=== PATIENT | female | born 1940 | race Caucasian/White ===

== ENCOUNTER 2022-11-19 09:56 | Observation (INO) | payer MEDICARE, SELFPAY ==
[2022-11-19] VITALS (9 sets, daily range): BP systolic 94–118; BP diastolic 55–89; PULSE 70–91; RESP 16–18; TEMP 35.6; O2SAT 95–97; BMI 19.8
--- NOTE | 2022-11-19 10:32 | CRLHL7_ITS ---
For Patients: As a result of the Century Cures Act, medical imaging exams and procedure reports are released immediately into your electronic medical record. You may view this report before your referring provider. If you have questions, please contact your health care provider. INDICATION: Atrial fibrillation with a rapid ventricular response. TECHNIQUE: AP portable semi-upright chest. COMPARISON: None. FINDINGS: Clear lungs. No pneumothoraces or infiltrates. No evidence for congestive heart failure. Slight cardiac enlargement likely accentuated by the portable technique. IMPRESSION: No acute cardiopulmonary process identified. Dictated by Jose Daniel Lama MD @ 11/19/2022 11:18:42 AM (Electronically Signed)
--- NOTE | 2022-11-19 10:34 | ED.GENADULT ---
HPI - General Adult General Chief complaint: Dizziness/Vertigo Stated complaint: Weakness, tightness in chest Time Seen by Provider: 11/19/22 10:10 History of Present Illness HPI narrative: Jordan is a 82-year-old female from home presents emerged department via private car with with some dizziness and weakness and tightness in the chest. Patient states she went to bed last night feeling well, she got up this morning going to the bathroom and had dizziness like the room was spinning, she denies any chest pain or shortness of breath, she feels better when she lays down, she does have a history of atrial fibrillation she is not currently on any anticoagulation. She denies any diaphoresis, cough, fevers or chills. Related Data Home Medications Medication Instructions Recorded Confirmed No Known Home Medications 11/19/22 11/19/22 Allergies Allergy/AdvReac Type Severity Reaction Status Date / Time No Known Drug Allergies Allergy Verified 11/19/22 10:13 Review of Systems Status of ROS: Reports: 10 or more systems reviewed and unremarkable except as noted in History and below PFSH PFS Social History Smoking Status: Never smoker How often do you have a drink containing alcohol: monthly or less AUDIT-C Alcohol total score: 1 Non-prescribed substance use: denies use Exam Narrative: Exam Narrative: General: No obvious distress laying comfortably HEENT: Pupils equal round reactive to light Neck: Supple full range of motion Heart: Irregular regular tachycardic Lungs: Clear to auscultation bilaterally Abdomen: Soft nontender Muscle skeletal: No lower extremity edema Neuro: Alert awake and oriented x3 Const: Vital Signs, click to edit/add: Vital Signs - 24 hr 11/19/22 10:10 Temperature 96.1 F L Pulse Rate [Pulse Oximeter] 91 Respiratory Rate 18 Blood Pressure [Ri ght Upper Arm] 102/57 L Pulse Oximetry 96 Oxygen Delivery Me thod Room Air Course Course Hospital Course: 10:30 AM: AIDET, vitals are stable at this time, workup will include IV peripheral, 500 mL bolus 0.9 normal saline, will obtain EKG, CBC, troponin T, CMP, TSH and portable chest x-ray one-view. Differential diagnosis include but not limited to CAD/mi, PE, pneumothorax, pneumonia and aortic dissection. Other considerations are thyroid abnormalities, heart failure, SVT, atrial fibrillation, ventricular tachycardia and ventricular fibrillation. Reevaluation(s) Reevaluation #1: Did speak with [facility] who reviewed EKG, recommended rate control and started on anticoagulation, not to treat as a level 1, EKG did show atrial fibrillation with RVR, was septal infarct age indeterminate, bpm 175, marked ST abnormality possible inferior subendocardial injury, no comparisons. Once IV was placed, patient did convert back to normal sinus rhythm. Second EKG showed, normal sinus rhythm, bpm 75, possible left atrial enlargement, no acute ST changes. Normal sinus rhythm replaces atrial fibrillation for previous. Time: 11:08 Reevaluation #2: Patient did well during stay in the emergency department, 1st troponin was mildly elevated at 0.08 likely a leak, repeat at 2:00 a.m. was 0.12, x-ray chest PA and lateral showed no acute cardiopulmonary process, TSH 5.2, she was positive for SARs/COVID, patient remained in normal sinus rhythm throughout her stay, his speak with Cardiology at [facility] once again based on her risk of recurrence recommended inpatient cares and echocardiogram, to possibly start patient on a antiarrhythmic. Spoke with Dr. Garsia hospitalist on-call she accepts care of the patient. Patient and were in agreement. Time: 14:30 Vital Signs Vital signs: Initial Vital Signs Temperature 96.1 F L 11/19/22 10:10 Temperature Source Temporal Artery Scan 11/19/22 10:10 Pulse Rate 91 11/19/22 10:10 Respiratory Rate 18 11/19/22 10:10 Blood Pressure 102/57 L 11/19/22 10:10 Blood Pressure Mean 72 11/19/22 10:10 Blood Pressure Position Supine 11/19/22 10:10 Pulse Oximetry 96 11/19/22 10:10 Oxygen Delivery Method 11/19/22 10:10 Vital Signs Temperature 96.1 F L 11/19/22 10:10 Pulse Rate 91 11/19/22 10:10 Respiratory Rate 18 11/19/22 10:10 Blood Pressure 102/57 L 11/19/22 10:10 Pulse Oximetry 96 11/19/22 10:10 Oxygen Delivery Method 11/19/22 10:10 Temperature 96.1 F L 11/19/22 10:10 Pulse Rate 91 11/19/22 10:10 Respiratory Rate 18 11/19/22 10:10 Blood Pressure 102/57 L 11/19/22 10:10 Pulse Oximetry 96 11/19/22 10:10 Oxygen Delivery Method 11/19/22 10:10 Medical Decision Making Lab Data Labs: Lab Results 11/19/22 11/19/22 11/19/22 Range/Units 10:40 10:40 10:40 WBC 8.58 (4.50-11.00) K/uL RBC 4.84 (4.00-5.20) m/uL Hgb 14.4 (12.0-16.0) gm/dL Hct 43.4 (33.0-51.0) % MCV 90 (80-100) fL MCH 30 (26-34) pg MCHC 33 (32-36) gm/dL RDW Coeff of Ayleen 13.8 (11.5-15.5) % Plt Count 370 (140-440) K/uL Neut % (Auto) 82.8 H (42.0-72.0) % Lymph % (Auto) 12.0 L (20-44) % [place] % (Auto) 4.3 (0.0-11.0) % Eos % (Auto) 0.3 (0.0-7.0) % Baso % (Auto) 0.3 (0.0-3.0) % Neut # (Auto) 7.10 H (1.7-7.0) K/uL Lymph # (Auto) 1.00 (0.90-2.90) K/uL [place] # (Auto) 0.40 (0.00-0.90) K/UL Eos # (Auto) 0.03 (0.00-0.50) K/uL Baso # (Auto) 0.03 (0.00-0.30) K/uL Sodium 140 (135-149) mmol/L Potassium 4.2 (3.6-5.1) mmol/L Chloride 107 (96-114) mmol/L Carbon Dioxide 23 (20-32) mmol/L BUN 15 (7-30) mg/dL Creatinine 0.8 (0.5-1.5) mg/dL Estimated Creat Clear 40.44 Estimated GFR 74 ml/min Glucose 167 H (60-115) mg/dL Calcium 10.1 (8.4-10.6) mg/dL Total Bilirubin 1.0 (0.1-1.5) mg/dL AST 20 (12-35) U/L ALT 16 (4-35) U/L Alkaline Phosphatase 78 (40-150) U/L Troponin I 0.08 H* (0.01-0.04) ng/mL Total Protein 7.7 (6.0-8.3) g/dL Albumin 4.2 (3.3-5.0) g/dL TSH 5.200 H (0.270-4.20) uIU/mL SARS-CoV-2 (PCR) (Negative) 11/19/22 11/19/22 Range/Units 11:18 12:55 WBC (4.50-11.00) K/uL RBC (4.00-5.20) m/uL Hgb (12.0-16.0) gm/dL Hct (33.0-51.0) % MCV (80-100) fL MCH (26-34) pg MCHC (32-36) gm/dL RDW Coeff of Ayleen (11.5-15.5) % Plt Count (140-440) K/uL Neut % (Auto) (42.0-72.0) % Lymph % (Auto) (20-44) % [place] % (Auto) (0.0-11.0) % Eos % (Auto) (0.0-7.0) % Baso % (Auto) (0.0-3.0) % Neut # (Auto) (1.7-7.0) K/uL Lymph # (Auto) (0.90-2.90) K/uL [place] # (Auto) (0.00-0.90) K/UL Eos # (Auto) (0.00-0.50) K/uL Baso # (Auto) (0.00-0.30) K/uL Sodium (135-149) mmol/L Potassium (3.6-5.1) mmol/L Chloride (96-114) mmol/L Carbon Dioxide (20-32) mmol/L BUN (7-30) mg/dL Creatinine (0.5-1.5) mg/dL Estimated Creat Clear Estimated GFR ml/min Glucose (60-115) mg/dL Calcium (8.4-10.6) mg/dL Total Bilirubin (0.1-1.5) mg/dL AST (12-35) U/L ALT (4-35) U/L Alkaline Phosphatase (40-150) U/L Troponin I 0.12 H* (0.01-0.04) ng/mL Total Protein (6.0-8.3) g/dL Albumin (3.3-5.0) g/dL TSH (0.270-4.20) uIU/mL SARS-CoV-2 (PCR) POSITIVE SARS-CoV-2 A (Negative) Discharge Plan Discharge Clinical Impression: COVID-19, Atrial fibrillation with RVR Additional Instructions: Cardiology follow up appointment is scheduled at the [facility] [address] on 01/02 with a 10:15am arrival time. If you have any questions or need to reschedule, please call [phone]. [facility] [address] [place] [address] Prescriptions: No Action No Known Home Medications
[2022-11-19 10:55] LABS: Basophils Absolute Auto 0.03 K/uL (0.00-0.30); Basophils Percent Auto 0.3 % (0.0-3.0); Eosinophils Absolute Auto 0.03 K/uL (0.00-0.50); Eosinophils Percent Auto 0.3 % (0.0-7.0); Hematocrit 43.4 % (33.0-51.0); Hemoglobin* 14.4 gm/dL (12.0-16.0); Immature Granulocytes Abs Auto 0.03 K/uL (0.00-0.30); Immature Granulocytes Pct Auto 0.3 %; Mean Corpuscular HGB Conc 33 gm/dL (32-36); Mean Corpuscular Hemoglobin 30 pg (26-34); Mean Corpuscular Volume 90 fL (80-100); Monocytes Percent Auto 4.3 % (0.0-11.0); Neutrophils Percent Auto 82.8 % (42.0-72.0); Platelet Count* 370 K/uL (140-440); RDW Coefficient of Variation % 13.8 % (11.5-15.5); Red Blood Count 4.84 m/uL (4.00-5.20); White Blood Count* 8.58 K/uL (4.50-11.00)
[2022-11-19 10:58] LABS: Slide Review Reflex No
[2022-11-19 11:08] LABS: Albumin* 4.2 g/dL (3.3-5.0); Chloride* 107 mmol/L (96-114); Potassium* 4.2 mmol/L (3.6-5.1); Sodium* 140 mmol/L (135-149)
[2022-11-19 11:11] LABS: Alanine Aminotransferase* 16 U/L (4-35); Alkaline Phosphatase* 78 U/L (40-150); Aspartate Amino Transferase* 20 U/L (12-35); Blood Urea Nitrogen* 15 mg/dL (7-30); Calcium* 10.1 mg/dL (8.4-10.6); Carbon Dioxide* 23 mmol/L (20-32); Creatinine* 0.8 mg/dL (0.5-1.5); Est. Creatinine Clearance* 40.44; Estimated Glomerular Filt Rate 74 ml/min; Glucose* 167 mg/dL (60-115); Total Protein* 7.7 g/dL (6.0-8.3)
[2022-11-19 11:27] LABS: Troponin I* 0.08 ng/mL (0.01-0.04)
[2022-11-19] MEDS: 0.9 % SODIUM CHLORIDE 500 ML 500 ML IV (11:45)
[2022-11-19 12:00] LABS: SARS PCR* POSITIVE SARS-CoV-2 (Negative)
[2022-11-19 13:31] LABS: Troponin I* 0.12 ng/mL (0.01-0.04)
--- NOTE | 2022-11-19 14:37 | ED.NURSE ---
bed request sent
--- NOTE | 2022-11-19 16:12 | PM.IMHP1 ---
Hospitalist- H&P: HPI History of Present Illness Time Seen by Provider: 16:12 Date Seen: 11/19/22 Chief complaint: Weakness, tightness in chest Review of Systems Status of ROS: Reports: 6 or more systems reviewed and unremarkable except as noted in History and below [facility] Social History (Updated 11/19/22 @ 16:33 by Samantha Garsia MD) Narrative: . Lives independently. Denies tob, EtOH, recreational drugs. FULL CODE. Smoking Status: Never smoker How often do you have a drink containing alcohol: monthly or less AUDIT-C Alcohol total score: 1 Non-prescribed substance use: denies use Meds Home Medications and Allergies Home Medications Medication Instructions Recorded Confirmed Type calcium carbonate 500 mg-vitamin 2 tab PO DAILY 11/19/22 11/19/22 History D3 10 mcg (400 unit) tablet (Calcium 500 + D) Allergies Allergy/AdvReac Type Severity Reaction Status Date / Time No Known Drug Allergies Allergy Verified 11/19/22 10:13 Exam Const: Vital Signs, click to edit/add: Vital Signs - 24 hr 11/19/22 10:10 11/19/22 11:40 11/19/22 11:48 Temperature 96.1 F L Pulse Rate [Pulse Oximeter] 91 75 72 Pulse Rate [orthos tatic lying Apical ] Pulse Rate [orthos tatic sitting Apic al] Pulse Rate [orthos tatic standing Api garima] Respiratory Rate 18 16 16 Blood Pressure [Ri ght Upper Arm] 102/57 L 107/60 101/55 L Blood Pressure [or thostatic lying Le ft Arm] Blood Pressure [or thostatic sitting Left Arm] Blood Pressure [or thostatic standing Left Arm] Pulse Oximetry 96 96 96 Oxygen Delivery Me thod Room Air 11/19/22 11:50 11/19/22 11:51 11/19/22 11:40 Temperature Pulse Rate [Pulse Oximeter] 74 80 Pulse Rate [orthos tatic lying Apical ] 71 Pulse Rate [orthos tatic sitting Apic al] 75 Pulse Rate [orthos tatic standing Api garima] 80 Respiratory Rate 16 16 Blood Pressure [Ri ght Upper Arm] 111/62 94/70 Blood Pressure [or thostatic lying Le ft Arm] 101/55 L Blood Pressure [or thostatic sitting Left Arm] 111/62 Blood Pressure [or thostatic standing Left Arm] 94/70 Pulse Oximetry 97 95 Oxygen Delivery Me thod 11/19/22 12:00 11/19/22 13:45 11/19/22 14:00 Temperature Pulse Rate [Pulse Oximeter] 70 73 73 Pulse Rate [orthos tatic lying Apical ] Pulse Rate [orthos tatic sitting Apic al] Pulse Rate [orthos tatic standing Api garima] Respiratory Rate 16 16 16 Blood Pressure [Ri ght Upper Arm] 98/56 L 118/58 L 111/89 Blood Pressure [or thostatic lying Le ft Arm] Blood Pressure [or thostatic sitting Left Arm] Blood Pressure [or thostatic standing Left Arm] Pulse Oximetry 95 97 96 Oxygen Delivery Me thod Hospitalist - H&P: Result Labs Labs: Short CBC 11/19/22 Range/Units 10:40 WBC 8.58 (4.50-11.00) K/uL Hgb 14.4 (12.0-16.0) gm/dL Hct 43.4 (33.0-51.0) % Plt Count 370 (140-440) K/uL BMP 11/19/22 10:40 Sodium 140 Potassium 4.2 Chloride 107 Carbon Dioxide 23 BUN 15 Creatinine 0.8 Glucose 167 H Calcium 10.1 Cardiac Enzymes 11/19/22 11/19/22 Range/Units 10:40 12:55 Troponin I 0.08 H* 0.12 H* (0.01-0.04) ng/mL Liver Function 11/19/22 Range/Units 10:40 Total Bilirubin 1.0 (0.1-1.5) mg/dL AST 20 (12-35) U/L ALT 16 (4-35) U/L Alkaline Phosphatase 78 (40-150) U/L Albumin 4.2 (3.3-5.0) g/dL
--- NOTE | 2022-11-19 17:18 | PM.SD ---
Same Day Admit/Disch: HPI History of Present Illness Time Seen by Provider: 16:12 Date Seen: 11/19/22 Chief complaint: Weakness, tightness in chest Narrative: This is an 82 year old female who has a history of atrial fibrillation for which she had an ablation many years ago and has not taken any medications for it since that time who presented through the emergency department this morning for concern of unsteadiness and dizziness. When she awoke this morning she had a sensation or dream that the blood was flowing from her left arm into her right arm. She denies any chest pain, heaviness, or shortness of breath. She had no palpitations. She has not had any recent illnesses, coughs, colds, febrile illnesses. She started to get up to use the bathroom and noted that her legs felt weak. While in the bathroom she felt unsteady on her feet. When she presented to the emergency department she had an EKG that showed she was in atrial fibrillation with a rapid ventricular rate of 175-180. When the IV was placed she converted back into normal sinus rhythm. A repeat EKG confirmed that. She had a mild troponin leak of 0.12. She is positive for SARs CoV 2. She feels fine now, back to her baseline in is moving around the room without any difficulty or unsteadiness. She was at 1st very resistant to taking any medications, but we discussed the increased risk of stroke in the setting of atrial fibrillation with RVR earlier today, and she agreed to start medications. She mentions that her is having leg surgery on December 02 and she will be caring for him at that time. I spoke with Dr. Ghanshyam Crawford from Cardiology at [facility] would also spoke with Dr. Leon in the emergency department about this patient earlier today. Dr. Crawford recommended that she could be discharged and treated as an outpatient with a beta-bhavin, metoprolol either 25 or 50 and Eliquis 5 mg twice a day. We discussed patient's age and creatinine pants when making this decision. I spoke with the patient about this and she wanted her medications sent to [facility]. I will set her up with an outpatient echocardiogram, primary care provider follow-up and Cardiology follow-up. Same Day Admit/Disch: ROS Constitutional Constitutional: Present weakness (As above); Absent anorexia, fatigue, fever(s) or headache(s) EENT Eyes: Absent change in vision Nose, mouth and throat: Absent sore throat Cardiovascular Cardiovascular: Absent chest pain, palpitations or pedal edema Gastrointestinal Gastrointestinal ROS: Absent abdominal pain, constipation, diarrhea, nausea or vomiting Genitourinary Genitourinary: Absent dysuria, urinary frequency or urinary urgency Musculoskeletal Musculoskeletal: Present abnormal gait (As above, felt unsteady); Absent back pain or myalgias Integumentary Integumentary: Absent rash Neurological Neurological: Present abnormal gait (As above) and dizziness; Absent confusion, frequent falls, lack of coordination, numbness or weakness Hematologic/Lymphatic Hematologic/Lymphatic: Absent lymphadenopathy [facility] Medical History (Updated 11/19/22 @ 17:57 by Samantha Garsia MD) Malignant neoplasm of rectosigmoid junction Nephrolithiasis Neuropathy of both feet Osteoporosis Paroxysmal A-fib SAH (subarachnoid hemorrhage) (~2010) Tubular adenoma of colon Social History (Updated 11/19/22 @ 16:33 by Samantha Garsia MD) Narrative: . Lives independently. Denies tob, EtOH, recreational drugs. FULL CODE. Smoking Status: Never smoker How often do you have a drink containing alcohol: monthly or less AUDIT-C Alcohol total score: 1 Non-prescribed substance use: denies use Exam Narrative: Exam Narrative: General: No acute distress. Odd affect. Impulsive and tangential thinking. Awake alert oriented x3. Very active moving around the room while I am talking with her, getting up and sitting back down in the chair bending over to put something in the garbage, even walked out into the hallway without a mask on and was asked to return to the room since she is COVID positive. HEENT: Normocephalic atraumatic, pupils equally round and reactive to light and accommodation. Oropharynx clear. Mucous membranes are moist. No cervical lymphadenopathy, thyromegaly or carotid bruits. No JVD. Cardiovascular: Regular rate and rhythm. No murmurs, gallops, or rubs. Chest: No increased work of breathing. Clear to auscultation bilaterally. No crackles or wheezes. Abdomen: Bowel sounds present. Soft, nondistended, nontender. No hepatosplenomegaly or masses. Extremities: No edema, no cyanosis or clubbing. Const: Vital Signs, click to edit/add: Vital Signs - 24 hr 11/19/22 10:10 11/19/22 11:40 11/19/22 11:48 Temperature 96.1 F L Pulse Rate [Pulse Oximeter] 91 75 72 Pulse Rate [orthos tatic lying Apical ] Pulse Rate [orthos tatic sitting Apic al] Pulse Rate [orthos tatic standing Api garima] Respiratory Rate 18 16 16 Blood Pressure [Ri ght Upper Arm] 102/57 L 107/60 101/55 L Blood Pressure [or thostatic lying Le ft Arm] Blood Pressure [or thostatic sitting Left Arm] Blood Pressure [or thostatic standing Left Arm] Pulse Oximetry 96 96 96 Oxygen Delivery Me thod Room Air 11/19/22 11:50 11/19/22 11:51 11/19/22 11:40 Temperature Pulse Rate [Pulse Oximeter] 74 80 Pulse Rate [orthos tatic lying Apical ] 71 Pulse Rate [orthos tatic sitting Apic al] 75 Pulse Rate [orthos tatic standing Api garima] 80 Respiratory Rate 16 16 Blood Pressure [Ri ght Upper Arm] 111/62 94/70 Blood Pressure [or thostatic lying Le ft Arm] 101/55 L Blood Pressure [or thostatic sitting Left Arm] 111/62 Blood Pressure [or thostatic standing Left Arm] 94/70 Pulse Oximetry 97 95 Oxygen Delivery Me thod 11/19/22 12:00 11/19/22 13:45 11/19/22 14:00 Temperature Pulse Rate [Pulse Oximeter] 70 73 73 Pulse Rate [orthos tatic lying Apical ] Pulse Rate [orthos tatic sitting Apic al] Pulse Rate [orthos tatic standing Api garima] Respiratory Rate 16 16 16 Blood Pressure [Ri ght Upper Arm] 98/56 L 118/58 L 111/89 Blood Pressure [or thostatic lying Le ft Arm] Blood Pressure [or thostatic sitting Left Arm] Blood Pressure [or thostatic standing Left Arm] Pulse Oximetry 95 97 96 Oxygen Delivery Me thod Same Day Admit/Disch: Data Data Completed and Pending Completed studies during hospitalization: 11/19/2022 10:12 a.m. EKG: Atrial fibrillation with rapid ventricular response. Heart rate 175 beats per minute. Low-voltage QRS. Septal infarct, age undetermined. Marked ST abnormality, possible inferior subendocardial injury. 11/19/2022 11:11 a.m. EKG: Normal sinus rhythm. Heart rate 74 beats per minute. Septal infarct, age undetermined. Ordering Physician: Nickolas Leon M.D. Date of Service: 11/19/22 Procedure(s): XR chest 1V portable Accession Number(s): [id number] cc: Provider,Not a Local ; Nickolsa Leon M.D.~ For Patients: As a result of the Cures Act, medical imaging exams and procedure reports are released immediately into your electronic medical record. You may view this report before your referring provider. If you have questions, please contact your health care provider. INDICATION: Atrial fibrillation with a rapid ventricular response. TECHNIQUE: AP portable semi-upright chest. COMPARISON: None. FINDINGS: Clear lungs. No pneumothoraces or infiltrates. No evidence for congestive heart failure. Slight cardiac enlargement likely accentuated by the portable technique. IMPRESSION: No acute cardiopulmonary process identified. Dictated by Jose Daniel Lama MD @ 11/19/2022 11:18:42 AM (Electronically Signed) Labs on day of discharge: Labs from last 24 hours 11/19/22 11/19/22 11/19/22 12:55 11:18 10:40 WBC RBC Hgb Hct MCV MCH MCHC RDW Coeff of Ayleen Plt Count Neut % (Auto) Lymph % (Auto) Greene % (Auto) Eos % (Auto) Baso % (Auto) Neut # (Auto) Lymph # (Auto) Greene # (Auto) Eos # (Auto) Baso # (Auto) Sodium Potassium Chloride Carbon Dioxide BUN Creatinine Estimated Creat Clear Estimated GFR Glucose Calcium Total Bilirubin AST ALT Alkaline Phosphatase Troponin I 0.12 H* Total Protein Albumin TSH 5.200 H SARS-CoV-2 (PCR) POSITIVE SARS-CoV-2 A 11/19/22 11/19/22 10:40 10:40 WBC 8.58 RBC 4.84 Hgb 14.4 Hct 43.4 MCV 90 MCH 30 MCHC 33 RDW Coeff of Ayleen 13.8 Plt Count 370 Neut % (Auto) 82.8 H Lymph % (Auto) 12.0 L Greene % (Auto) 4.3 Eos % (Auto) 0.3 Baso % (Auto) 0.3 Neut # (Auto) 7.10 H Lymph # (Auto) 1.00 Greene # (Auto) 0.40 Eos # (Auto) 0.03 Baso # (Auto) 0.03 Sodium 140 Potassium 4.2 Chloride 107 Carbon Dioxide 23 BUN 15 Creatinine 0.8 Estimated Creat Clear 40.44 Estimated GFR 74 Glucose 167 H Calcium 10.1 Total Bilirubin 1.0 AST 20 ALT 16 Alkaline Phosphatase 78 Troponin I 0.08 H* Total Protein 7.7 Albumin 4.2 TSH SARS-CoV-2 (PCR) Same Day Admit/Disch: Sum Hospital Course Hospital Course: See HPI. Status at Discharge Functional status at discharge: independent ambulation Overall status at discharge: patient is back to baseline Time Spent with Patient Time attestation: Total time spent providing and/or coordinating discharge services: 60 minutes due to multiple discussions with patient and phone call with have a chief data officer. Time spent: Greater than 30 minutes Provider Date of admission: 11/19/22 15:09 Primary care physician: Dina Ayala MD DS: Diagnosis Discharge Diagnosis (1) Atrial fibrillation with RVR: Status: Acute (2) Paroxysmal A-fib: Status: Chronic Problem details: h/o ablation per patient (3) COVID-19: Status: Acute Problem details: She is asymptomatic from covid. Not treating with paxlovid due to potential potentiation of apixaban. I do not think she needs remdesivir. Preferentially treating afib. Same Day Admit/Disch: Med Pre-admit Medications Home Medications Medication Instructions Recorded Confirmed Type calcium carbonate 500 mg-vitamin 2 tab PO DAILY 11/19/22 11/19/22 History D3 10 mcg (400 unit) tablet (Calcium 500 + D)
--- NOTE | 2022-11-19 18:31 | PC.NURSE ---
[facility]
--- NOTE | 2022-11-19 19:17 | PC.NURSE ---
Patient arrived to the floor around 1515. Patient denies having weakness or covid sypmtoms present. Sates I just don't know how I could be positive. Patient ambulating around the room independently - demonstrates a steady gait. Pulse rate found to be in the 90's and irregular. Patient appears to be oriented to time and place however is very forgetful. Walks out of her room multiple times. Pt reminded that she tested positive for covid and that she should not leave her room. Dr. Garsia saw the patient and wrote for discharge instructions. IV was removed. Discharge instructions were went over. All questions and concerns were addressed. Pt escorted to the front entrance via a wheelchair and nursing staff.
== END 2022-11-19 18:20 | disposition home or self-care (01) ==
LOC: ED 14:20 → MEDSURG 15:09
PROVIDERS: Admitting Provider Family Medicine; Emergency Provider Student in an Organized Health Care Education/Training Program; PCP Family Medicine; Visit Provider Family Medicine
DX: U07.1 COVID-19 (principal); I48.91 Unspecified atrial fibrillation; R77.8 Other specified abnormalities of plasma proteins; R53.1 Weakness; R42 Dizziness and giddiness; R07.89 Other chest pain; R26.9 Unspecified abnormalities of gait and mobility; Z87.898 Personal history of other specified conditions
CPT/HCPCS: 36415; 71045; 80053; 84443; 84484; 85025; 87635; 93005; 96360; 99282; 99285; G0378; J7120

== ENCOUNTER 2025-05-29 15:34 | Outpatient (CLI) | payer MEDICARE, SELFPAY | END 2025-05-29 15:35 | disposition home or self-care (01) | PROVIDERS: PCP Family Medicine; Visit Provider Family Medicine | DX: S89.91XA Unspecified injury of right lower leg, initial encounter (principal); S89.92XA Unspecified injury of left lower leg, initial encounter; W19.XXXA Unspecified fall, initial encounter; Y92.129 Unspecified place in nursing home as the place of occurrence of the external cause | CPT/HCPCS: A0425; A0427 ==

== ENCOUNTER 2025-05-29 16:16 | Inpatient (IN) | payer MEDICARE, SELFPAY ==
[2025-05-29 16:17] VITALS: BP 151/74; PULSE 95; RESP 18; TEMP 36.4; O2SAT 93
--- OUTSIDE RECORDS SUMMARY | 2025-05-29 16:17 | XMS_ITS ---
Author Name Auto Generated, Auto Generated Organization [facility] Functional Status No Results Mental Status No Results Allergies and Intolerances No Known Allergies Problems Active Concerns * Health care maintenance* Code: [id number] * Start Date: ThuMay 29 13:46:00 EDT 2024 * End Date: * Text: * Paroxysmal A-fib* Code: [id number] * Start Date: ThuJan 27 09:50:00 EDT 2024 * End Date: * Text: * Age-related osteoporosis without current pathological fracture* Code: [id number] * Start Date: ThuJan 27 09:50:00 EDT 2024 * End Date: * Text: * Mild hyperlipidemia* Code: [id number] * Start Date: ThuJan 27 09:51:00 EDT 2024 * End Date: * Text: * Mixed urge and stress incontinence* Code: [id number] * Start Date: ThuJan 27 09:51:00 EDT 2024 * End Date: * Text: * Tubular adenoma of colon* Code: [id number] * Start Date: ThuJan 27 09:52:00 EDT 2024 * End Date: * Text: * History of nephrolithiasis* Code: [id number] * Start Date: ThuJan 27 09:52:00 EDT 2024 * End Date: * Text: * 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
--- OUTSIDE RECORDS SUMMARY | 2025-05-29 16:17 | XMS_ITS | Clinical Summary ---
Author Organization [facility] Address [address] [place] [id number] Care Team Providers Care Bracelet Maker Novelty Name Role Phone Dina Ayala MD Primary Care Provide r Allergies No known active allergies Medications calcium carbonate-vitamin D3, 500 mg-400 units, (OSCAL 500 + D) tablet Take 2 Tablets by mouth once daily. 0 2 Active apixaban (Eliquis) 5 mg tabletIndications :Rapid atrial fibrillation (HC) Take 1 Tablet (5 mg) by mouth two times daily. 180 Tablet 3 3 Active metoprolol tartrate (LOPRESSOR) 25 mg tabletIndications :Rapid atrial fibrillation (HC) Take 1 Tablet (25 mg) by mouth two times daily. TAKE 1 BY MOUTH TWICE DAILY Strength: 25 mg 180 Tablet 3 3 Active metoprolol succinate (TOPROL XL) 50 mg sustained-release tabletIndications :Rapid atrial fibrillation (HC) Take 1 Tablet (50 mg) by mouth once daily. 90 Tablet 3 3 Active Active Problems Problem Noted Date Diagnosed Date Rapid atrial fibrillation 12/11/2022 Malignant neoplasm of rectosigmoid junction 12/25 Paroxysmal atrial fibrillation 11/13/2020 Tubular adenoma of colon 11/13/2020 Osteoporosis 11/13/2020 Kidney stones 10/02/2020 Neuropathy of both feet 10/02/2020 Immunizations Immunization Administration Dates Next Due COVID-19 VACCINE SPIKEVAX (M ODERNA 50MCG/0.5ML) 12YO+ PFS 08/05/2024 COVID-19 vaccine ([employer] 30mcg/0.3mL) 12YO+ BIVALENT PF, MDV 07/29/2022 COVID-19 vaccine ([employer] 30mcg/0.3mL) 12YO+ MELO-SUCROSE PF, MDV 02/12/2022 Influenza Virus, Unspecified 08/09/2017, 08/11/2016,08/06/2015,2008 Influenza, High-dose Inactivated 07/28/2019,07/26 Influenza, High-dose Quadriv alent Inactivated 08/14/2022,08/19/2021 Influenza, IIV3 (Age >=3 years) 10/01/2012 Influenza, IIV4 07/26/2015 Influenza, Inactivated AIIV4 (Age 65+ Years) Preserv Free 07/07/2020 Influenza, Inactivated IIV3 (Age 65+ Years) Preserv Free 08/05/2024 Pneumococcal Conj 20-valent (Prevnar 20) 01/15/2023 Pneumococcal Poly,23-Valent (Pneumovax) 07/07/2020 Smallpox (Vaccinia) Live [id number] 07/10/1971 Td (Age >=7 Years) 04/09/1997,07/10/1971 Tdap 06/21/2020 Family History Medical History Relation Name Comments Esophageal cancer Father Cancer Mother Leukemia Sister Relation Name Status Comments Father Mother Sister Social History Tobacco Use Types Packs/Day Years Used Date Smoking Tobacco: Never Smokeless Tobacco: Never Tobacco Cessation:Counseling Given: Yes Alcohol Use Standard Drinks/Week Comments Not Currently 0 (1 standard drink = 0.6 oz pur e alcohol) PHQ-2 Answer Date Recorded PHQ-2 TOTAL SCORE 0 01/17/2022 Social Connections Answer Date Recorded Frequency of Communication with Friends and Fami ly Not on file 10/26/2021 Financial Resource Strain Answer Date R ecorded Difficulty of Paying Living Expenses Not on file 10/26/2021 Difficulty of Paying Living Expenses Not on file 10/26/2021 Comments No Sex and Gender Information Value Date Recorded Sex Assigned at Not on file Legal Sex Female 2:53 PM RADIOGRAPHIC TECHNOLOGIST Gender Identity Not on file Sexual Orientation Not on file Obstetrics History Last Filed Vital Signs Vital Sign Reading Time Taken Comments Blood Pressure 131/83 01/15/2023 7:10 AM CDT Pulse 67 01/15/2023 7:10 AM CDT Temperature - - Respiratory Rate 16 02/06/2022 1:22 PM CDT Oxygen Saturation 98% 01/15/2023 7:10 AM CDT Inhaled Oxygen Concentration - - Weight 66.3 kg (146 lb 3.2 oz) 01/15/2023 7:10 A M CDT Height 170.2 cm (5' 7) 01/17/2022 11:44 AM CDT Body Mass Index 22.9 01/17/2022 11:44 AM CDT Plan of Treatment Health Maintenance Due Date Last Done Comments Zoster (shingles) series for age 50+ (1 of 2) 1991 RSV vaccine for adults or (1 - 1-dose 75+ series) 2016 BMI (ht and wt on same day) for age 18+ 01/17/2023 01/17/2022 Depression screening for age 12+ 01/17/2023 01/17/2022, 11/13/2020, 11/13/2020 Medicare Wellness for age 65+ 01/18/2023 01/17/2022, 11/13/2020 COVID-19 vaccine series ( season) 2025 08/05/2024, 07/29/2022, 02/12/2022, Additional history exists Influenza Vaccine (#1) 2025 , 07/07/2020, 07/28/2019, Additional history exists Tetanus booster 06/21/2030 06/21/2020, 03/26, 07/10/1971 DEXA/DXA scan for age 65+ Completed 11/13/2020 Pneumococcal series for age 50+ Completed 01/15/2023, 07/07/2020 Hepatitis B series for 19+ Aged Out N o longer eligible based on patient's age to complete this topic Procedures Procedure Name Priority Date/Time Associated Diagnosis Comments XR DXA BONE DENSITY 2 SITES AXIAL Routine 11/13/2020 2:58 PM RADIOGRAPHIC TECHNOLOGIST Osteoporosis, unspecified osteoporosis type, unspecified pathological fracture presence from Last 3 Months or Most Recently Relevant to Health Maintenance Results * (ABNORMAL) XR DXA BONE DENSITY 2 SITES AXIAL (11/13/2020 2:58 PM RADIOGRAPHIC TECHNOLOGIST) Anatomical Region Laterality Modality Spine, HIPS, HIPL, HIPR Other Narrative 11/14/2020 2:44 PM RADIOGRAPHIC TECHNOLOGIST Please see scanned document for results of this study. us Dina Ayala MD DEXA Final Result from Last 3 Months or Most Recently Relevant to Health Maintenance Insurance #[id number] [facility] [address] [place] [id number] [facility] MR Advance Directives Documents on File Type Date Recorded Patient Operator Weapon Locating Radar Expl anation POLST 09/01/2024 Care Teams Bracelet Maker Novelty Relationship Specialty Start Date End Date Dina Ayala MD [address] [place] [address] PCP - General Family Practice 10/02/20
--- NOTE | 2025-05-29 16:31 | CRLHL7_ITS ---
For Patients: As a result of the Century Cures Act, medical imaging exams and procedure reports are released immediately into your electronic medical record. You may view this report before your referring provider. If you have questions, please contact your health care provider. Indication: FALL YESTERDAY , LEFT HIP PAIN Technique: Single view of the pelvis, two views of the left hip. Comparison: None. Findings: Mild degenerative changes of the bilateral hips and of the visualized spine. Postsurgical changes from open reduction internal fixation of the proximal right femur. No acute displaced fracture or malalignment is seen. Bowel staple lines are seen in the right abdomen. Impression: Mild degenerative changes of the bilateral hips and of the visualized spine. Postsurgical changes from open reduction internal fixation of the proximal right femur. No acute displaced fracture or malalignment is seen. Dictated by Hay Lawrence MD @ 05/29/2025 5:31:02 PM (Electronically Signed)
--- NOTE | 2025-05-29 16:31 | ED_ITS ---
HPI - Fall General Date Seen: 05/29/25 <Frantz Hemphill DO - Last Filed: 05/29/25 16:51> Chief Complaint: Fall/Minor Trauma <Frantz Hemphill DO - Last Filed: 05/29/25 16:51> Stated Complaint: fall <Frantz Hemphill DO - Last Filed: 05/29/25 16:51> Time Seen by Provider: 05/29/25 16:24 <Frantz Hemphill DO - Last Filed: 05/29/25 16:51> Source: other (Progress note from [facility]) <Frantz Hemphill DO - Last Filed: 05/29/25 16:51> History of Present Illness HPI Narrative: Patient is an 84-year-old female with a history of dementia presenting to emergency department for a fall. History obtained via very detailed progress note from her [facility]. At 12:10 the patient tripped over her walker when she leaned over to grab it. This causes a fall backwards and landed on her butt and then back. Report is she did not hit her head. Staff saw the fall but were unable to catch her. At that time patient is not complaining about any pain other than her right elbow and there was a small bruise at that time. When they tried to sit her up she did screaming some pain and pointed to her lateral thighs when asked what hurts. She was able to get up into a sitting position and was able to stand up to sit into a chair and did not complain of any pain she was able to fully weightbear. After that she was able to stand up inde pendently. Was refusing to take any steps forwards they then wanted to do x- rays at the [facility] and when she went to go get the x-rays the patient refused to stand up out of the chair. Due to this they had to call ambulance to send her to the emergency department for imaging. No other concerns noted. Patient denies any pain at this time but she does have dementia. <Frantz Hemphill DO - Last Filed: 05/29/25 16:51> Related Data Home Medications: Home Medications ?Medication ?Instructions ?Recorded ?Confirmed No Known Home Medications 05/29/2502/17 <Frantz Hemphill DO - Last Filed: 05/29/25 16:51> Allergies/Adverse Reactions: Allergies Allergy/AdvReac Type Severity Reaction Status Date / Time No Known Drug Allergies Allergy Verified 02/20/23 09:58 <Frantz Hemphill DO - Last Filed: 05/29/25 16:51> Review of Systems Status of ROS: Reports: 10 or more systems reviewed and unremarkable except as noted in History and below (But is limited due to patient's dementia.) <Frantz Hemphill DO - Last Filed: 05/29/25 16:51> [facility] Medical History: Medical History SAH (subarachnoid hemorrhage) (~2010) ?I60.9 - Nontraumatic subarachnoid hemorrhage, unspecified (ICD-10) Malignant neoplasm of rectosigmoid junction ?C19 - Malignant neoplasm of rectosigmoid junction (ICD-10) Osteoporosis ?M81.0 - Age-related osteoporosis without current pathological fracture (ICD- 10) Tubular adenoma of colon ?D12.6 - Benign neoplasm of colon, unspecified (ICD-10) Paroxysmal A-fib ?I48.0 - Paroxysmal atrial fibrillation (ICD-10) Neuropathy of both feet ?G57.93 - Unspecified mononeuropathy of bilateral lower limbs (ICD-10) Nephrolithiasis ?N20.0 - Calculus of kidney (ICD-10) <Frantz Hemphill DO - Last Filed: 05/29/25 16:51> Social History: Social History Narrative: . Lives independently. Denies tob, EtOH, recreational drugs. FULL CODE. Smoking Status: Never smoker How often do you have a drink containing alcohol: monthly or less AUDIT-C Alcohol total score: 1 Non-prescribed substance use: denies use <Frantz Hemphill DO - Last Filed: 05/29/25 16:51> Exam Narrative: Exam Narrative: Const: Well-nourished, Well-developed, in no distress Eyes: PERRL, no conjunctival injection, and symmetrical lids HENT: Atraumatic external nose and ears. Moist mucous membranes. Neck: Symmetric, trachea midline, No thyromegaly. CVS: RRR, No murmurs or gallops. Peripheral pulses 2+ and equal in all extremities RESP: Unlabored respiratory effort. Clear to auscultation bilaterally. GI: Nontender/Nondistended, No rebound or guarding. MSK:Extremities w/o deformity, Normal Active ROM, mild left groin tenderness Skin: Warm, Dry. No rashes or lesions. Neuro: Normal Muscle tone, No focal neurological deficits. Psych: Awake, Alert, & Oriented to self <Frantz Hemphill DO - Last Filed: 05/29/25 16:51> Const: Vital Signs, click to edit/add: Vital Signs - 24 hr 05/29/25 16:17 Temperature 97.6 F Pulse Rate [Pulse Oximeter] 95 Respiratory Rate 18 Blood Pressure [Ri ght Upper Arm] 151/74 H Pulse Oximetry 93 Oxygen Delivery Me thod Room Air <Frantz Hemphill, - Last Filed: 05/29/25 16:51> Vital Signs, click to edit/add: Vital Signs - 24 hr 05/29/25 16:17 Temperature 97.6 F Pulse Rate [Pulse Oximeter] 95 Respiratory Rate 18 Blood Pressure [Ri ght Upper Arm] 151/74 H Pulse Oximetry 93 Oxygen Delivery Me thod Room Air <Valerie Velasquez MD - Last Filed: 05/29/25 19:47> Course Course ED Course: I was asked to review patient's imaging. Hip x-rays, read by me, do not show any evidence of fracture. Radiologic over-read in agreement. Patient was able to ambulate with her walker for only a few steps before she matt at the knees and she needs help continuing. This was discussed with the staff at her senior care who stated that this is very unusual for her and that she usually ambulates without difficulty. Because of this we proceeded with a CT scan of the hip which did show fractures of the inferior right pubic ramus and nondisplaced fracture of the right iliac. Discussed with Orthopedics, Sharmin Epps, recommends weight-bearing as tolerated and pain control. Do did discuss with patient's senior care who stated that they need a day to get the patient's accommodations ready for her before she can return. Of note, patient does have leukocytosis today, unclear meaning of this. <Valerie Velasquez MD - Last Filed: 05/29/25 19:47> Vital Signs Vital signs: Initial Vital Signs Temperature 97.6 F 05/29/25 16:17 Temperature Source Temporal Artery Scan 05/29/25 16:17 Pulse Rate 95 05/29/25 16:17 Respiratory Rate 18 05/29/25 16:17 Blood Pressure 151/74 H 05/29/25 16:17 Blood Pressure Mean 99 05/29/25 16:17 Blood Pressure Position Supine 05/29/25 16:17 Pulse Oximetry 93 05/29/25 16:17 Oxygen Delivery Method Room Air 05/29/25 16:17 Vital Signs Temperature 97.6 F 05/29/25 16:17 Pulse Rate 95 05/29/25 16:17 Respiratory Rate 18 05/29/25 16:17 Blood Pressure 151/74 H 05/29/25 16:17 Pulse Oximetry 93 05/29/25 16:17 Oxygen Delivery Method Room Air 05/29/25 16:17 Temperature 97.6 F 05/29/25 16:17 Pulse Rate 95 05/29/25 16:17 Respiratory Rate 18 05/29/25 16:17 Blood Pressure 151/74 H 05/29/25 16:17 Pulse Oximetry 93 05/29/25 16:17 Oxygen Delivery Method Room Air 05/29/25 16:17 <Frantz Hemphill, DO - Last Filed: 05/29/25 16:51> Initial Vital Signs Temperature 97.6 F 05/29/25 16:17 Temperature Source Temporal Artery Scan 05/29/25 16:17 Pulse Rate 95 05/29/25 16:17 Respiratory Rate 18 05/29/25 16:17 Blood Pressure 151/74 H 05/29/25 16:17 Blood Pressure Mean 99 05/29/25 16:17 Blood Pressure Position Supine 05/29/25 16:17 Pulse Oximetry 93 05/29/25 16:17 Oxygen Delivery Method Room Air 05/29/25 16:17 Vital Signs Temperature 97.6 F 05/29/25 16:17 Pulse Rate 95 05/29/25 16:17 Respiratory Rate 18 05/29/25 16:17 Blood Pressure 151/74 H 05/29/25 16:17 Pulse Oximetry 93 05/29/25 16:17 Oxygen Delivery Method Room Air 05/29/25 16:17 Temperature 97.6 F 05/29/25 16:17 Pulse Rate 95 05/29/25 16:17 Respiratory Rate 18 05/29/25 16:17 Blood Pressure 151/74 H 05/29/25 16:17 Pulse Oximetry 93 05/29/25 16:17 Oxygen Delivery Method Room Air 05/29/25 16:17 <Valerie Velasquez MD - Last Filed: 05/29/25 19:47> MDM - Fall MDM Narrative Medical decision making narrative: Patient is an 84-year-old female presenting after fall. Per report he did not hit her head. Do not believe head imaging is necessary. Will do an x-ray of the left hip.` <Frantz Hemphill DO - Last Filed: 05/29/25 16:51> Lab Data Labs: Lab Results 05/29/25 Range/Units 19:17 WBC 16.43 H (4.50-11.00) K/uL RBC 4.57 (4.00-5.20) m/uL Hgb 13.8 (12.0-16.0) gm/dL Hct 40.7 (33.0-51.0) % MCV 89 (80-100) fL MCH 30 (26-34) pg MCHC 34 (32-36) gm/dL RDW Coeff of Ayleen 13.1 (11.5-15.5) % Plt Count 307 (140-440) K/uL Neut % (Auto) 86.4 H (42.0-72.0) % Lymph % (Auto) 6.8 L (20-44) % Yell % (Auto) 5.9 (0.0-11.0) % Eos % (Auto) 0.1 (0.0-7.0) % Baso % (Auto) 0.2 (0.0-3.0) % Neut # (Auto) 14.20 H (1.7-7.0) K/uL Lymph # (Auto) 1.10 (0.90-2.90) K/uL Yell # (Auto) 1.00 H (0.00-0.90) K/UL Eos # (Auto) 0.00 (0.00-0.50) K/uL Baso # (Auto) 0.00 (0.00-0.30) K/uL Abs Immat Gran (auto) 0.10 (0.00-0.30) K/uL Imm/Tot Granulo (auto) 0.6 % Lactate 1.9 (0.5-1.9) mmol/L <Frantz Hemphill DO - Last Filed: 05/29/25 16:51> Lab Results 05/29/25 Range/Units 19:17 WBC 16.43 H (4.50-11.00) K/uL RBC 4.57 (4.00-5.20) m/uL Hgb 13.8 (12.0-16.0) gm/dL Hct 40.7 (33.0-51.0) % MCV 89 (80-100) fL MCH 30 (26-34) pg MCHC 34 (32-36) gm/dL RDW Coeff of Ayleen 13.1 (11.5-15.5) % Plt Count 307 (140-440) K/uL Neut % (Auto) 86.4 H (42.0-72.0) % Lymph % (Auto) 6.8 L (20-44) % Yell % (Auto) 5.9 (0.0-11.0) % Eos % (Auto) 0.1 (0.0-7.0) % Baso % (Auto) 0.2 (0.0-3.0) % Neut # (Auto) 14.20 H (1.7-7.0) K/uL Lymph # (Auto) 1.10 (0.90-2.90) K/uL Yell # (Auto) 1.00 H (0.00-0.90) K/UL Eos # (Auto) 0.00 (0.00-0.50) K/uL Baso # (Auto) 0.00 (0.00-0.30) K/uL Abs Immat Gran (auto) 0.10 (0.00-0.30) K/uL Imm/Tot Granulo (auto) 0.6 % Lactate 1.9 (0.5-1.9) mmol/L <Valerie Velasquez MD - Last Filed: 05/29/25 19:47> Imaging Data x-ray pelvis: Attestation: I have reviewed the pertinent imaging results. <Valerie Velasquez MD - Last Filed: 05/29/25 19:47> Radiologist's impression: Technique: Single view of the pelvis, two views of the left hip. Comparison: None. Findings: Mild degenerative changes of the bilateral hips and of the visualized spine. Postsurgical changes from open reduction internal fixation of the proximal right femur. No acute displaced fracture or malalignment is seen. Bowel staple lines are seen in the right abdomen. Impression: Mild degenerative changes of the bilateral hips and of the visualized spine. Postsurgical changes from open reduction internal fixation of the proximal right femur. No acute displaced fracture or malalignment is seen. <Valerie Velasquez MD - Last Filed: 05/29/25 19:47> CT pelvis: Attestation: I have reviewed the pertinent imaging results. <Valerie Velasquez MD - Last Filed: 05/29/25 19:47> Radiologist's impression: Technique: Noncontrast CT of the left hip. Comparison: Radiographs same day FINDINGS/IMPRESSION : Acute complete comminuted nondisplaced fracture of the inferior right pubic ramus. Nondisplaced fracture of the right iliac Remaining osseous structures are intact right hip ORIF. Visualized portions of the abdomen and pelvis show no acute process. Colonic diverticulosis. Hysterectomy. <Valerie Velasquez MD - Last Filed: 05/29/25 19:47> Discharge Plan Discharge Clinical Impression: Closed fracture of pubic ramus, Closed fracture of iliac crest Acute hip pain Qualifiers: Laterality: left Qualified Code(s): M25.552 - Pain in left hip <Frantz Hemphill DO - Last Filed: 05/29/25 16:51> Patient Disposition: Admitted As Observation <Frantz Hemphill DO - Last Filed: 05/29/25 16:51> Condition: Stable <Frantz Hemphill DO - Last Filed: 05/29/25 16:51>
--- OUTSIDE RECORDS SUMMARY | 2025-05-29 17:10 | XMS_ITS ---
Author Name Auto Generated, Auto Generated Organization [facility] Functional Status No Results Mental Status No Results Allergies and Intolerances No Known Allergies Problems Active Concerns * Health care maintenance* Code: [id number] * Start Date: ThuMay 29 13:46:00 EDT 2024 * End Date: * Text: * Paroxysmal A-fib* Code: [id number] * Start Date: ThuJan 27 09:50:00 EDT 2024 * End Date: * Text: * Age-related osteoporosis without current pathological fracture* Code: [id number] * Start Date: ThuJan 27 09:50:00 EDT 2024 * End Date: * Text: * Mild hyperlipidemia* Code: [id number] * Start Date: ThuJan 27 09:51:00 EDT 2024 * End Date: * Text: * Mixed urge and stress incontinence* Code: [id number] * Start Date: ThuJan 27 09:51:00 EDT 2024 * End Date: * Text: * Tubular adenoma of colon* Code: [id number] * Start Date: ThuJan 27 09:52:00 EDT 2024 * End Date: * Text: * History of nephrolithiasis* Code: [id number] * Start Date: ThuJan 27 09:52:00 EDT 2024 * End Date: * Text: * Moderate dementia without behavioral disturbance, psychotic disturbance, mood disturbance, or anxiety, unspecified dementia type* Code: [id number] * Start Date: ThuMarch 10 11:58:00 EDT 2024 * End Date: * Text: Reason for Referral
--- OUTSIDE RECORDS SUMMARY | 2025-05-29 17:10 | XMS_ITS ---
Author Name Auto Generated, Auto Generated Organization [facility] Functional Status No Results Mental Status No Results Allergies and Intolerances No Known Allergies Problems Active Concerns * Health care maintenance* Code: [id number] * Start Date: ThuMay 29 13:46:00 EDT 2024 * End Date: * Text: * Paroxysmal A-fib* Code: [id number] * Start Date: ThuJan 27 09:50:00 EDT 2024 * End Date: * Text: * Age-related osteoporosis without current pathological fracture* Code: [id number] * Start Date: ThuJan 27 09:50:00 EDT 2024 * End Date: * Text: * Mild hyperlipidemia* Code: [id number] * Start Date: ThuJan 27 09:51:00 EDT 2024 * End Date: * Text: * Mixed urge and stress incontinence* Code: [id number] * Start Date: ThuJan 27 09:51:00 EDT 2024 * End Date: * Text: * Tubular adenoma of colon* Code: [id number] * Start Date: ThuJan 27 09:52:00 EDT 2024 * End Date: * Text: * History of nephrolithiasis* Code: [id number] * Start Date: ThuJan 27 09:52:00 EDT 2024 * End Date: * Text: * Moderate dementia without behavioral disturbance, psychotic disturbance, mood disturbance, or anxiety, unspecified dementia type* Code: [id number] * Start Date: ThuMarch 10 11:58:00 EDT 2024 * End Date: * Text: Reason for Referral
--- NOTE | 2025-05-29 18:08 | CRLHL7_ITS ---
For Patients: As a result of the Cures Act, medical imaging exams and procedure reports are released immediately into your electronic medical record. You may view this report before your referring provider. If you have questions, please contact your health care provider. Indication: LEFT HIP PAIN, FALL YESTERDAY, Technique: Noncontrast CT of the left hip. Comparison: Radiographs same day FINDINGS/IMPRESSION : Acute complete comminuted nondisplaced fracture of the inferior right pubic ramus. Nondisplaced fracture of the right iliac Remaining osseous structures are intact right hip ORIF. Visualized portions of the abdomen and pelvis show no acute process. Colonic diverticulosis. Hysterectomy. Please note that all CT scans at this facility use dose modulation, iterative reconstruction, and/or weight-based dosing when appropriate to reduce radiation dose to as low as reasonably achievable. Dictated by Mehran Rivera MD @ 05/29/2025 7:14:27 PM (Electronically Signed)
[2025-05-29 19:16] VITALS: PULSE 92; RESP 16; O2SAT 93
[2025-05-29 19:27] LABS: Hematocrit 40.7 % (33.0-51.0); Hemoglobin* 13.8 gm/dL (12.0-16.0); Immature Granulocytes Abs Auto 0.10 K/uL (0.00-0.30); Immature Granulocytes Pct Auto 0.6 %; Lactate* 1.9 mmol/L (0.5-1.9); Mean Corpuscular HGB Conc 34 gm/dL (32-36); Mean Corpuscular Hemoglobin 30 pg (26-34); Mean Corpuscular Volume 89 fL (80-100); RDW Coefficient of Variation % 13.1 % (11.5-15.5); Red Blood Count 4.57 m/uL (4.00-5.20); White Blood Count* 16.43 K/uL (4.50-11.00)
[2025-05-29 19:31] LABS: Lymphocytes Absolute Auto 1.10 K/uL (0.90-2.90); Slide Review Reflex No
[2025-05-29 19:46] LABS: Albumin* 3.7 g/dL (3.3-5.0); Chloride* 106 mmol/L (96-114); Potassium* 4.1 mmol/L (3.6-5.1); Sodium* 135 mmol/L (135-149)
[2025-05-29 19:49] LABS: Alanine Aminotransferase* 18 U/L (4-35); Alkaline Phosphatase* 71 U/L (40-150); Anion Gap 7 mEq/L (7-15); Aspartate Amino Transferase* 25 U/L (12-35); Bilirubin Direct* 0.0 mg/dL (0.0-0.5); Bilirubin Total* 0.7 mg/dL (0.1-1.5); Blood Urea Nitrogen* 24 mg/dL (7-30); Carbon Dioxide* 22 mmol/L (20-32); Creatinine* 0.8 mg/dL (0.5-1.5); Estimated Glomerular Filt Rate 73 ml/min; Total Protein* 6.6 g/dL (6.0-8.3)
[2025-05-29 19:50] LABS: Calcium* 9.5 mg/dL (8.4-10.6); Glucose* 123 mg/dL (60-115)
[2025-05-29 20:31] VITALS: BP 153/84; PULSE 98; RESP 20; TEMP 37.4; O2SAT 96
--- NOTE | 2025-05-29 20:41 | PM.IMHP1 ---
Assessment and Plan Assessment and plan (1) Closed fracture of iliac crest: Status: Acute (2) Closed fracture of pubic ramus: Status: Acute (3) Paroxysmal A-fib: Problem comment: h/o ablation per patient, not on anticoagulation Status: Chronic (4) Moderate dementia without behavioral disturbance, psychotic disturbance, mood disturbance, or anxiety: Status: Chronic Plan 84 y/o female with dementia who lives in memory care who fell and has right anterior rib, right elbow, and groin/thigh pain. Right rib films and right elbow films are pending, pelvic x-rays and right hip CT scan reveal acute complete comminuted nondisplaced inferior right pubic ramus and right iliac fractures. Patient was unable to ambulate and transfer at her facility. They are willing to take her back tomorrow, but need to prepare for a change in services and cannot meet her needs tonight. Per report from the ER physician, the orthopedic PA was called from the ER and recommended operative management with weight-bearing as tolerated. Hospitalist- H&P: HPI History of Present Illness Time Seen by Provider: 20:20 Date Seen: 05/29/25 Chief complaint: fall Narrative: Jenna Kelley is a 84 year old female with dementia who lives in memory care at [facility] who fell while walking in the dining room with her walker this afternoon. The fall was witnessed by staff and I am reading the documented note from [facility] for wearing get this information. She apparently leaned over to grab the walker while standing and her leg got caught under the walker causing her to fall backward onto her bottom. She did not hit her head according to this note. She complained pain in her right elbow immediately afterward and had pain in her thighs when trying to sit up she was able to bear weight to get into a chair and was able to stand up independently without pain afterward. She then was unable to take a step forward and wanted to sit back down. She then started complaining of more thigh and groin pain so EMS was called. The patient herself does not recall the fall. She tells me she has pain just under her right breast and in her pelvis. Review of Systems Status of ROS: Reports: unobtainable due to medical condition (dementia) Medical Decision Making Medical Decision Making Code Status: Needs addressing. We have called [facility] to ask for a POLST and POA paperwork, as none was sent with her. Has patient completed a Health Care Directive: No [facility] Medical History (Updated 05/29/25 @ 21:17 by Samantha Garsia MD) Moderate dementia without behavioral disturbance, psychotic disturbance, mood disturbance, or anxiety (03/10/25) ?F03.B0 - Unspecified dementia, moderate, without behavioral disturbance, psychotic disturbance, mood disturbance, and anxiety (ICD-10) Mixed urge and stress incontinence (01/27/25) ?N39.46 - Mixed incontinence (ICD-10) Hyperlipidemia (01/27/25) ?E78.5 - Hyperlipidemia, unspecified (ICD-10) Osteoporosis (11/13/20) ?M81.0 - Age-related osteoporosis without current pathological fracture (ICD-10) Neuropathy of both feet (10/02/20) ?G57.93 - Unspecified mononeuropathy of bilateral lower limbs (ICD-10) 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) ?C19 - Malignant neoplasm of rectosigmoid junction (ICD-10) COVID-19 (~11/19/22) ?U07.1 - COVID-19 (ICD-10) SAH (subarachnoid hemorrhage) (~2010) ?I60.9 - Nontraumatic subarachnoid hemorrhage, unspecified (ICD-10) Malignant neoplasm of rectosigmoid junction ?C19 - Malignant neoplasm of rectosigmoid junction (ICD-10) Osteoporosis ?M81.0 - Age-related osteoporosis without current pathological fracture (ICD-10) Tubular adenoma of colon ?D12.6 - Benign neoplasm of colon, unspecified (ICD-10) Paroxysmal A-fib ?I48.0 - Paroxysmal atrial fibrillation (ICD-10) Neuropathy of both feet ?G57.93 - Unspecified mononeuropathy of bilateral lower limbs (ICD-10) Nephrolithiasis ?N20.0 - Calculus of kidney (ICD-10) Social History (Updated 05/29/25 @ 21:21 by Samantha Garsia MD) Narrative: Lives in memory care at [facility]. . Denies tob, EtOH, recreational drugs. What is your current living situation?: I presently have a place to live Problems where you live: no known problems Problems where you live details: na In the past 12 months, utilities in danger of being shut off: no In past 12 months, lack of transportation kept you from medical appts, meetings, work, or getting things needed for daily living: no In the past 12 mos, have been you worried that your food would run out before you had money to buy more?: never true In the past 12 mos, the food you bought just didn't last and you didn't have money to buy more?: never true Highest level of school completed/degree received: Master's degree Smoking Status: Never smoker How often do you have a drink containing alcohol: monthly or less AUDIT-C Alcohol total score: 1 Non-prescribed substance use: denies use Caffeine: No How often does anyone, including family, friends and others, physically hurt you: never How often does anyone, including family, friends and others, insult or talk down to you: never How often does anyone, including family, friends and others, threaten you with harm: never How often does anyone, including family, friends and others, scream or curse at you: never service: No Meds Home Medications and Allergies Home Medications ?Medication ?Instructions ?Recorded ?Confirmed ?Type No Known Home Medications 05/29/25 05/29/25 History Home Medication Comments: No med list available from [employer]. We have called and requested one. Allergies Allergy/AdvReac Type Severity Reaction Status Date / Time No Known Drug Allergies Allergy Verified 02/20/23 09:58 Exam Narrative: Exam Narrative: General: No acute distress. Awake alert oriented to self and knows she is in a hospital, but not oriented to time or situation. HEENT: Normocephalic atraumatic, pupils equally round and reactive to light and accommodation. Oropharynx clear. Mucous membranes are moist. Cardiovascular: Regular rate and rhythm. No murmurs, gallops, or rubs. Chest: No erythema, abrasions, or bruising noted. Mildly tender to palpation in the anterior ribs 4 through 6 just under the right breast. No increased work of breathing. Clear to auscultation bilaterally. No crackles or wheezes. Abdomen: Bowel sounds present. Soft, nondistended, nontender. No hepatosplenomegaly or masses. Genitourinary: Normal external female genitalia without visually apparent trauma or ecchymosis. Buttocks: No ecchymosis or erythema. Skin is intact. Extremities: No edema, no cyanosis or clubbing. Skin: No jaundice, no pallor, no rashes. Neuro: Grossly intact. No focal deficits. Const: Vital Signs, click to edit/add: Vital Signs - 24 hr 05/29/25 16:17 05/29/25 19:16 Temperature 97.6 F Pulse Rate [Pulse Oximeter] 95 92 Respiratory Rate 18 16 Blood Pressure [Ri ght Upper Arm] 151/74 H Pulse Oximetry 93 93 Oxygen Delivery Me thod Room Air Room Air Hospitalist - H&P: Result Labs Labs: Short CBC 05/29/25 Range/Units 19:17 WBC 16.43 H (4.50-11.00) K/uL Hgb 13.8 (12.0-16.0) gm/dL Hct 40.7 (33.0-51.0) % Plt Count 307 (140-440) K/uL BMP 05/29/25 19:17 Sodium 135 Potassium 4.1 Chloride 106 Carbon Dioxide 22 BUN 24 Creatinine 0.8 Glucose 123 H Calcium 9.5 Liver Function 05/29/25 Range/Units 19:17 Total Bilirubin 0.7 (0.1-1.5) mg/dL Direct Bilirubin 0.0 (0.0-0.5) mg/dL AST 25 (12-35) U/L ALT 18 (4-35) U/L Alkaline Phosphatase 71 (40-150) U/L Albumin 3.7 (3.3-5.0) g/dL 05/29/2025 EKG: Sinus rhythm with fusion complexes and premature atrial complexes. 86 beats per minute. Septal infarct, age undetermined. Ordering Physician: Frantz Hemphill D.O. Date of Service: 05/29/25 Procedure(s): XR hip LT min 2V Accession Number(s): [id number] cc: Frantz Hemphill D.O.; Dina Ayala M.D.~ For Patients: As a result of the Century Cures Act, medical imaging exams and procedure reports are released immediately into your electronic medical record. You may view this report before your referring provider. If you have questions, please contact your health care provider. Indication: FALL YESTERDAY , LEFT HIP PAIN Technique: Single view of the pelvis, two views of the left hip. Comparison: None. Findings: Mild degenerative changes of the bilateral hips and of the visualized spine. Postsurgical changes from open reduction internal fixation of the proximal right femur. No acute displaced fracture or malalignment is seen. Bowel staple lines are seen in the right abdomen. Impression: Mild degenerative changes of the bilateral hips and of the visualized spine. Postsurgical changes from open reduction internal fixation of the proximal right femur. No acute displaced fracture or malalignment is seen. Dictated by Hay Lawrence MD @ 05/29/2025 5:31:02 PM (Electronically Signed) Ordering Physician: Valerie Velasquez M.D. Date of Service: 05/29/25 Procedure(s): CT hip LT wo con Accession Number(s): [id number] cc: Valerie Velasquez M.D.; Dina Ayala M.D.~ For Patients: As a result of the Cures Act, medical imaging exams and procedure reports are released immediately into your electronic medical record. You may view this report before your referring provider. If you have questions, please contact your health care provider. Indication: LEFT HIP PAIN, FALL YESTERDAY, Technique: Noncontrast CT of the left hip. Comparison: Radiographs same day FINDINGS/IMPRESSION : Acute complete comminuted nondisplaced fracture of the inferior right pubic ramus. Nondisplaced fracture of the right iliac Remaining osseous structures are intact right hip ORIF. Visualized portions of the abdomen and pelvis show no acute process. Colonic diverticulosis. Hysterectomy. Please note that all CT scans at this facility use dose modulation, iterative reconstruction, and/or weight-based dosing when appropriate to reduce radiation dose to as low as reasonably achievable. Dictated by Mehran Rivera MD @ 05/29/2025 7:14:27 PM (Electronically Signed)
--- NOTE | 2025-05-29 21:08 | CRLHL7_ITS ---
For Patients: As a result of the Cures Act, medical imaging exams and procedure reports are released immediately into your electronic medical record. You may view this report before your referring provider. If you have questions, please contact your health care provider. INDICATION: Chest pain. TECHNIQUE: Chest/right ribs, 3 views. COMPARISON: None. FINDINGS: Cardiovascular and mediastinum: Heart size and vasculature are normal in caliber and appearance. Lungs and pleural spaces: Lungs are clear. No sign of infiltrate or mass. No sign of pleural effusion. No pneumothorax. Bones and soft tissues: Acute nondisplaced right anterior 4th rib fracture. IMPRESSION: Acute nondisplaced right anterior 4th rib fracture. Dictated by Nickolas He MD @ 05/29/2025 10:07:46 PM (Electronically Signed)
--- NOTE | 2025-05-29 21:19 | CRLHL7_ITS ---
For Patients: As a result of the Cures Act, medical imaging exams and procedure reports are released immediately into your electronic medical record. You may view this report before your referring provider. If you have questions, please contact your health care provider. Indication: Trauma. Technique: Right elbow, 3 views. Comparison: None. Findings/Impression: Limited evaluation secondary to patient positioning Bones: Alignment is normal. No displaced fractures or bone lesions. Joint spaces: Unremarkable. Soft tissues: Unremarkable. Dictated by Nickolas He MD @ 05/29/2025 10:11:05 PM (Electronically Signed)
[2025-05-29 22:09] LABS: Appearance Urine Cloudy (Clear)
[2025-05-29 22:35] VITALS: RESP 20; O2SAT 96
[2025-05-29] MEDS: CEFPODOXIME PROXETIL 200 MG TABLET PO (22:42)
[2025-05-29 23:30] VITALS: BP 130/85; PULSE 79; RESP 18; TEMP 38.7; O2SAT 95
[2025-05-29 23:46] VITALS: TEMP 38.7
[2025-05-29] MEDS: ACETAMINOPHEN 325 MG TABLET 975 MG PO (23:46)
[2025-05-30] VITALS (9 sets, daily range): BP systolic 110–132; BP diastolic 58–86; PULSE 73–94; RESP 16–18; TEMP 36.2–37.8; O2SAT 91–95
--- NOTE | 2025-05-30 04:56 | PC.NURSE ---
This patient arrived from the ED in the early night. She lives in a memory care unit due to dementia but had a fall resulting in two hip fractures and a broken rib that brought her to our hospital. Behavior has been a audra for providing care. Medium to high risk of violence on assessment. Overnight we have utilized a 1:1 with our nurse who was on-call. Unable to use an automatic cuff due to the patient?s distress from the pressure. No further developments. Care transferred at 0500.?
[2025-05-30 06:25] LABS: Hematocrit 40.1 % (33.0-51.0); Hemoglobin* 13.6 gm/dL (12.0-16.0); Immature Granulocytes Pct Auto 0.4 %; Mean Corpuscular HGB Conc 34 gm/dL (32-36); Mean Corpuscular Hemoglobin 30 pg (26-34); Mean Corpuscular Volume 89 fL (80-100); RDW Coefficient of Variation % 13.1 % (11.5-15.5); Red Blood Count 4.49 m/uL (4.00-5.20); White Blood Count* 11.13 K/uL (4.50-11.00)
[2025-05-30 06:28] LABS: Immature Granulocytes Abs Auto 0.00 K/uL (0.00-0.30); Lymphocytes Absolute Auto 2.30 K/uL (0.90-2.90); Slide Review Reflex No
[2025-05-30] MEDS: CEFPODOXIME PROXETIL 200 MG TABLET PO (07:37)
[2025-05-30] MEDS: IBUPROFEN 200 MG TABLET 600 MG PO (09:38)
--- NOTE | 2025-05-30 12:49 | P.IMPN_ITS ---
Assessment and Plan Assessment and plan (1) UTI (urinary tract infection): Problem comment: -white blood cells elevated on admission > 16K. Fever on presentation with temperature of 101.7 F. -urinalysis analysis abnormal -Pending urine culture -started her on IV ceftriaxone 1 g Q 24 hours. Status: Acute (2) Closed fracture of iliac crest: Problem comment: Orthopedics were consulted on admission and they stated that if fractures are inoperable. They recommended bearing weight as tolerated. P.T./OT consulted. Pain management. Status: Acute (3) Closed fracture of pubic ramus: Problem comment: Orthopedics were consulted on admission and they stated that if fractures are inoperable. They recommended bearing weight as tolerated. P.T./OT consulted. Pain management. 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 Subjective Date Seen: 05/30/25 Interval history: Patient was seen and examined at bedside. Patient is demented. She states that she is doing well. Patient had fever on presentation but currently she is afebrile. Patient will need to be discharged to a intermediate facility Exam Narrative: Exam Narrative: Physical exam GENERAL: Comfortable, no acute distress. HEAD AND NECK: Atraumatic, normocephalic CARDIOVASCULAR: RRR. Normal S1, S2. RESPIRATORY: Clear to auscultation B/L. Good air entry B/L. GASTROINTESTINAL: Not distended, not tender to palpation. NEUROLOGY: Alert, awake. Normal speech. PSYCH: Normal mood, normal affect. Const: Vital Signs, click to edit/add: Vital Signs - 24 hr 05/29/25 16:17 05/29/25 19:16 05/29/25 20:31 Temperature 97.6 F 99.4 F Pulse Rate [Bilate ral Radial] Pulse Rate [Left P ulse Oximeter] 98 Pulse Rate [Pulse Oximeter] 95 92 Respiratory Rate 18 16 20 Blood Pressure [Le ft Arm] 153/84 H Blood Pressure [Ri ght Upper Arm] 151/74 H Pulse Oximetry 93 93 96 Oxygen Delivery Ms thod Room Air Room Air Room Air 05/29/25 20:31 05/29/25 22:35 05/29/25 23:30 Temperature 101.7 F H Pulse Rate [Bilate ral Radial] Pulse Rate [Left P ulse Oximeter] 79 Pulse Rate [Pulse Oximeter] Respiratory Rate 20 20 18 Blood Pressure [Le ft Arm] 130/85 Blood Pressure [Ri ght Upper Arm] Pulse Oximetry 96 96 95 Oxygen Delivery Ms thod Room Air Room Air Room Air 05/29/25 23:46 05/30/25 02:28 05/30/25 07:00 Temperature 101.7 F H 98.8 F Pulse Rate [Bilate ral Radial] Pulse Rate [Left P ulse Oximeter] 73 73 Pulse Rate [Pulse Oximeter] Respiratory Rate 16 16 Blood Pressure [Le ft Arm] 132/76 Blood Pressure [Ri ght Upper Arm] Pulse Oximetry 93 Oxygen Delivery Ms thod Room Air 05/30/25 07:00 05/30/25 07:00 Temperature 98.0 F Pulse Rate [Bilate ral Radial] 84 Pulse Rate [Left P ulse Oximeter] 84 Pulse Rate [Pulse Oximeter] Respiratory Rate 18 Blood Pressure [Le ft Arm] 110/58 L Blood Pressure [Ri ght Upper Arm] Pulse Oximetry 94 94 Oxygen Delivery Ms thod Room Air Room Air Labs Labs: Laboratory Results - last 24 hr 05/29/25 05/29/25 05/30/25 19:17 21:35 05:56 WBC 16.43 H 11.13 H RBC 4.57 4.49 Hgb 13.8 13.6 Hct 40.7 40.1 MCV 89 89 MCH 30 30 MCHC 34 34 RDW Coeff of Ayleen 13.1 13.1 Plt Count 307 289 Neut % (Auto) 86.4 H 63.4 Lymph % (Auto) 6.8 L 20.6 Vernon % (Auto) 5.9 11.4 H Eos % (Auto) 0.1 3.6 Baso % (Auto) 0.2 0.6 Neut # (Auto) 14.20 H 7.10 H Lymph # (Auto) 1.10 2.30 Vernon # (Auto) 1.00 H 1.30 H Eos # (Auto) 0.00 0.40 Baso # (Auto) 0.00 0.10 Abs Immat Gran (auto) 0.10 0.00 Imm/Tot Granulo (auto) 0.6 0.4 Sodium 135 Potassium 4.1 Chloride 106 Carbon Dioxide 22 Anion Gap 7 BUN 24 Creatinine 0.8 Estimated GFR 73 Glucose 123 H Lactate 1.9 Calcium 9.5 Total Bilirubin 0.7 Direct Bilirubin 0.0 AST 25 ALT 18 Alkaline Phosphatase 71 Troponin I < 0.01 Total Protein 6.6 Albumin 3.7 Urine Color Yellow Urine Appearance Cloudy A Urine pH 6.0 Ur Specific Mead 1.020 Urine Protein 1+ A Urine Glucose (UA) Negative Urine Ketones Negative Urine Blood 1+ A Urine Nitrite Positive A Urine Bilirubin Negative Urine Urobilinogen 0.2 Ur Leukocyte Esterase 2+ A Urine RBC 5-10 A Urine WBC >100 A Ur Squamous Epith Cells Few Urine Bacteria Many A
[2025-05-30] MEDS: cefTRIAXone 1 GM in 0.9 % SODIUM CHLORIDE Mini-bag 100 ML IVPB (14:51)
--- NOTE | 2025-05-30 15:25 | PC.NURSE ---
Patient ambulates with Jenna Steady, Patient PIV Right hand patent. Patient utilizes bed and chair alarm for safety. Patient oriented to self only. Patient using commode during the day and purwick at HS
--- NOTE | 2025-05-30 16:25 | PC.SOCIAL ---
Discharge planning: Pt is being recommended for short-term rehab by PT. used car make ready worker talked to the pt and her and they would like a referral to be send to [facility] in [facility]. used car make ready worker checked with Marily in Admissions at [facility] and she stated they do have short-term female rehab beds available right now. used car make ready worker secure emailed the referral to Marily at [facility] for review. Social work to follow-up as needed.
[2025-05-30] MEDS: ACETAMINOPHEN 325 MG TABLET 975 MG PO (21:42)
[2025-05-31] VITALS (8 sets, daily range): BP systolic 124–154; BP diastolic 58–84; PULSE 83–105; RESP 16–18; TEMP 36.2–37.4; O2SAT 93–98
[2025-05-31] MEDS: IBUPROFEN 200 MG TABLET 400 MG PO (03:28)
[2025-05-31 06:09] LABS: Hematocrit 39.1 % (33.0-51.0); Hemoglobin* 12.9 gm/dL (12.0-16.0); Mean Corpuscular HGB Conc 33 gm/dL (32-36); Mean Corpuscular Hemoglobin 30 pg (26-34); Mean Corpuscular Volume 91 fL (80-100); Red Blood Count 4.30 m/uL (4.00-5.20); White Blood Count* 10.55 K/uL (4.50-11.00)
[2025-05-31 06:12] LABS: Slide Review Reflex No
[2025-05-31 06:23] LABS: Chloride* 105 mmol/L (96-114); Potassium* 3.9 mmol/L (3.6-5.1); Sodium* 135 mmol/L (135-149)
[2025-05-31 06:26] LABS: Anion Gap 5 mEq/L (7-15); Blood Urea Nitrogen* 23 mg/dL (7-30); Calcium* 9.1 mg/dL (8.4-10.6); Carbon Dioxide* 25 mmol/L (20-32); Creatinine* 0.8 mg/dL (0.5-1.5); Estimated Glomerular Filt Rate 73 ml/min; Glucose* 104 mg/dL (60-115)
--- NOTE | 2025-05-31 06:43 | PC.NURSE ---
End of shift report [id number]: Pt is oriented to self. Denies pain. Pt had a fever of 100.1, prn Tylenol offered and given upon reassessment fever decreased to 99.4. This morning's temperature was 98.7. Pt is tolerating the Jenna steady with GB and 2A to go to the bathroom. Bed alarm on, call light within reach.?
--- NOTE | 2025-05-31 11:52 | P.IMPN_ITS ---
Assessment and Plan Assessment and plan (1) UTI (urinary tract infection): Problem comment: -white blood cells elevated on admission > 16K. Fever on presentation with temperature of 101.7 F. -urinalysis analysis abnormal -Urine culture growing E coli sensitive to ceftriaxone -Cont IV ceftriaxone 1 g Q 24 hours. -once bed for rehab is available, will switch her to p.o. antibiotics (cefdinir 300 b.i.d., total treatment duration is 5 days). Status: Acute (2) Closed fracture of iliac crest: Problem comment: Orthopedics were consulted on admission and they stated that if fractures are inoperable. They recommended bearing weight as tolerated. P.T./OT consulted. Pain management. Status: Acute (3) Closed fracture of pubic ramus: Problem comment: Orthopedics were consulted on admission and they stated that if fractures are inoperable. They recommended bearing weight as tolerated. P.T./OT consulted. Pain management. 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 Total Time Spent Total Time Spent: Today I spent 50 minutes seeing the patient, reviewing Expanse and EPIC notes/diagnostics, discussing the care plan with our care time that includes social work, PT/OT, pharmacy, RT, custodial and documenting my impressions and plan in the medical record. Subjective Date Seen: 05/31/25 Interval history: Patient was seen and examined at bedside. She states that she is doing well. Afebrile. Denies pain. No new complaints. Pending discharge for short-term rehab facility as recommended per P.T./OT. Continue treatment for UTI. Exam Narrative: Exam Narrative: Physical exam GENERAL: Comfortable, no acute distress. HEAD AND NECK: Atraumatic, normocephalic CARDIOVASCULAR: RRR. Normal S1, S2. RESPIRATORY: Clear to auscultation B/L. Good air entry B/L. GASTROINTESTINAL: Not distended, not tender to palpation. NEUROLOGY: Alert, awake. Normal speech. PSYCH: Normal mood, normal affect. Const: Vital Signs, click to edit/add: Vital Signs - 24 hr 05/30/25 16:23 05/30/25 16:23 05/30/25 19:00 Temperature 97.1 F L 99 F Pulse Rate [Left P ulse Oximeter] 93 94 Respiratory Rate 18 18 16 Blood Pressure [Le ft Arm] 129/86 128/68 Pulse Oximetry 95 95 95 Oxygen Delivery Me thod Room Air Room Air Room Air 05/30/25 20:12 05/30/25 21:42 05/30/25 22:00 Temperature 100.1 F H Pulse Rate [Left P ulse Oximeter] Respiratory Rate 16 18 Blood Pressure [Le ft Arm] Pulse Oximetry 91 Oxygen Delivery Me thod Room Air 05/30/25 22:09 05/31/25 03:00 05/31/25 06:44 Temperature 100.1 F H 99.4 F 98.7 F Pulse Rate [Left P ulse Oximeter] 88 83 Respiratory Rate 18 16 Blood Pressure [Le ft Arm] 120/76 124/72 Pulse Oximetry 91 93 Oxygen Delivery Me thod Room Air Room Air 05/31/25 07:00 05/31/25 07:00 05/31/25 07:00 Temperature 98.7 F Pulse Rate [Left P ulse Oximeter] 83 83 Respiratory Rate 16 16 16 Blood Pressure [Le ft Arm] 124/72 Pulse Oximetry 93 93 Oxygen Delivery Me thod Room Air Room Air Labs Labs: Laboratory Results - last 24 hr 05/31/25 05:37 WBC 10.55 RBC 4.30 Hgb 12.9 Hct 39.1 MCV 91 MCH 30 MCHC 33 Plt Count 247 Sodium 135 Potassium 3.9 Chloride 105 Carbon Dioxide 25 Anion Gap 5 L BUN 23 Creatinine 0.8 Estimated GFR 73 Glucose 104 Calcium 9.1
[2025-05-31] MEDS: cefTRIAXone 1 GM in 0.9 % SODIUM CHLORIDE Mini-bag 100 ML IVPB (12:45)
--- NOTE | 2025-05-31 14:38 | PC.NURSE ---
Patient ambulating with pat steady and assist of two. Patient utilizes bed and chair alarm due to baseline dementia. Patient is oriented to self and extremely pleasant. PIV Right wrist patent. She is getting Manual blood pressures and fluids encouraged.
--- NOTE | 2025-05-31 14:57 | PC.SOCIAL ---
Addendum entered by JOCELYNE Catalan 05/31/25 17:08: Discharge plan: Received call back from Marily at [facility] stating they can not accept pt for rehab stay. Called who is aware of [facility] decision. states he does not drive and pt needs to be placed in [place] so he can visit her. Explained to pt that there are no facilities besides [facility] who accept insurance for a rehab stay in [place], but that there may be a privat pay bed available at the [facility] or at [facility]. 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 Called [facility] and spoke with Lisbeth who states there are currently no beds available. Called [facility] [phone] and left message requesting call back regarding bed availability. printing worker supervisor to follow up as needed. Original Note: Discharge planning: SW called Marily at [facility] to determine if there are any beds or if we need to send referrals elsewhere. Marily states they are reviewing. Marily had questions about copay and POA. RONNA informed family aware of copay and that there is no information at this time. RONNA spoke with patient and and asked them to review SNF list and come up with a couple more options for sending referrals to. Marily inquired about transport to f/u appts. RONNA called patient's who states that he has friends and maybe their POA. RONNA inquired about paperwork for POA and he states that Shruthi will work on getting this to [facility] and [facility] if she goes there. RONNA updated Marily with this information. RONNA still waiting for response from Marily. RONNA spoke with Clemencia who states that there are no POA or HCD on file. Clemencia reports no concerns with 's memory that they are aware of. SW to continue to assist with discharge planning.
[2025-05-31] MEDS: ACETAMINOPHEN 325 MG TABLET 975 MG PO (15:47)
--- NOTE | 2025-05-31 22:36 | PC.NURSE ---
Arrived to find the patient resting in bed and in good spirits. Dementia in medical history. Oriented to self but not always to where she is or the current situation. Denies pain while at rest. She does experience pain during transfers and when moving in bed. Unable to ambulate without a sarasteady over this shift. Pre-medicating with Tylenol or Ibuprofen may allow for rising with a walker. Patient has been often declining these medications when assessing and planning for pain. It seems she starts feeling pain when repositioning but then doesn?t in that moment know why she is feeling pain, causing her to not want to get up until it can be figured out. Continent of both bowel and bladder over this evening. Urgency incontinence noted over previous shifts overnight. Given her vital stability and the high risk for delirium it was determined that restful night vitals would be of benefit to the patient, per hospitalist. The patient appeared well and at rest as time of transfer of care approached. ?
[2025-06-01 05:21] VITALS: RESP 18
[2025-06-01 07:00] VITALS: BP 161/90; PULSE 84; RESP 18; TEMP 36.4; O2SAT 94
[2025-06-01 10:20] VITALS: BP 141/80; PULSE 93; RESP 16; TEMP 37.2; O2SAT 96
--- NOTE | 2025-06-01 11:36 | PC.SOCIAL ---
Addendum entered by JOCELYNE Catalan 06/01/25 15:25: Discharge planning: Met with Stephanie from [facility], pt, , friend Chary and non profit financial controller Yasmin, regarding discharge plans. Pt has been accepted to [facility] for admission today. Chary plans to drive pt and Yasmin will buy a wheelchair and deliver it to [facility] today. and pt are pleased with this plan. Pt is eager to be discharged today. Discharge orders were secure emailed to Stephanie at [facility]. Original Note: Discharge planning: Spoke with Stephanie at [facility] [phone], who shared there are currently respite beds available at that facility in [place]. Stephanie states she can visit pt for face to face at 1;00 today and admit pt to facility today of accepted. Called , who is agreeable with this plan. confirmed he is aware a short term stay at a [facility] facility contracted with their insurance would likely be covered by insurance, but he is not interested in exploring this option as he does not want pt placed outside of [place]. is aware [facility] would be a private pay stay and is agreeable with this. plans to visit pt in her room at 1:00 today to be present for [id number] visit by [facility] nurse. box storage worker secure emailed referral packet at 's request to Stephanie at [email or web address]. is aware pt is ready for discharge today and that if [facility] is not a fit, the only option is facility placement outside of [place]. box storage worker to follow up as needed. Received call from Clemencia nurse at [facility], confirming she does not think she can accept pt at current care level, but she requested updated information be sent to her for review. Secure emailed referral packet to Clemencia and provided her nurse to nurse number to call if needed. box storage worker to follow up as needed.
[2025-06-01] MEDS: cefTRIAXone 1 GM in 0.9 % SODIUM CHLORIDE Mini-bag 100 ML IVPB (13:07)
--- NOTE | 2025-06-01 14:47 | P.DS_ITS ---
DS: Providers Provider Date Seen: 06/01/25 Date of admission: 05/30/25 12:48 Primary care physician: Dina Ayala MD Admitting Clinician: Samantha Garsia MD Consults: 05/29/25 21:08 Consult to Occupational Therapy [CONS] Routine Comment: Reason(s) for OT Consult:: Evaluate and Treat Any Restrictions?:: No Restrictions Consult to Physical Therapy [CONS] Routine Comment: Reason(s) for PT Consult:: Evaluate and Treat Any Restrictions?:: No Restrictions Consult to [employer] Presser [CONS] Routine Comment: Reason for Consult:: Discharge Planning Needs Attending Physician on discharge: Samantha Garsia MD DS: Diagnosis Discharge Diagnosis (1) UTI (urinary tract infection): Status: Acute Problem details: -white blood cells elevated on admission > 16K. Fever on presentation with temperature of 101.7 F. -urinalysis analysis abnormal -Urine culture growing E coli sensitive to ceftriaxone -Cont IV ceftriaxone 1 g Q 24 hours. -06/01: will switch her to p.o. antibiotics (cefdinir 300 b.i.d., total treatment duration is 5 days). (2) Closed fracture of iliac crest: Status: Acute Problem details: Orthopedics were consulted on admission and they stated that if fractures are inoperable. They recommended bearing weight as tolerated. P.T./OT consulted. Pain management. (3) Closed fracture of pubic ramus: Status: Acute Problem details: Orthopedics were consulted on admission and they stated that if fractures are inoperable. They recommended bearing weight as tolerated. P.T./OT consulted. Pain management. (4) Paroxysmal A-fib: Status: Chronic Problem details: h/o ablation per patient, not on anticoagulation (5) Moderate dementia without behavioral disturbance, psychotic disturbance, mood disturbance, or anxiety: Status: Chronic (6) Fall: Status: Acute DS: Summary Hospital Course Hospital Course: An 84-year-old female patient was admitted after a fall. At the ED patient was found to have a closed fracture of the iliac crest and another closed fracture of the pubic ramus. Orthopedic service was consulted and they stated that her fractures are inoperable, patient will need PT/OT. During her admission patient was found to have a UTI that was treated with IV antibiotics but she needs to complete the course orally for a total of 5 days after discharge. Patient will need home health PT/OT upon discharge. Status at Discharge Functional status at discharge: uses cane/walker Overall status at discharge: patient is progressing back to baseline Time Spent with Patient Time attestation: Total time spent providing and/or coordinating discharge services: Exam Narrative: Exam Narrative: Physical exam GENERAL: Comfortable, no acute distress. HEAD AND NECK: Atraumatic, normocephalic CARDIOVASCULAR: RRR. Normal S1, S2. No murmurs. RESPIRATORY: Clear to auscultation B/L. Good air entry B/L. No wheezes or rhonchi. GASTROINTESTINAL: Not distended, not tender to palpation. NEUROLOGY: Alert, awake. Normal speech. PSYCH: Normal mood, normal affect. Const: Vital Signs, click to edit/add: Vital Signs - 24 hr 05/31/25 15:00 05/31/25 15:00 05/31/25 15:00 Temperature 98.3 F Pulse Rate [Left P ulse Oximeter] 93 93 Respiratory Rate 18 18 18 Blood Pressure [Le ft Arm] 154/83 H Pulse Oximetry 93 93 Oxygen Delivery Me thod Room Air Room Air 05/31/25 18:30 05/31/25 23:00 05/31/25 23:30 Temperature 97.7 F Pulse Rate [Left P ulse Oximeter] 105 H Respiratory Rate 18 16 16 Blood Pressure [Le ft Arm] 154/84 H Pulse Oximetry 98 Oxygen Delivery Me thod Room Air 06/01/25 05:21 06/01/25 07:00 06/01/25 07:00 Temperature 97.5 F L Pulse Rate [Left P ulse Oximeter] 84 Respiratory Rate 18 18 18 Blood Pressure [Le ft Arm] 161/90 H Pulse Oximetry 94 94 Oxygen Delivery Me thod Room Air Room Air 06/01/25 10:20 Temperature 99 F Pulse Rate [Left P ulse Oximeter] 93 Respiratory Rate 16 Blood Pressure [Le ft Arm] 141/80 H Pulse Oximetry 96 Oxygen Delivery Me thod Room Air Discharge Plan Discharge Disposition: er [facility] Date of Admission: 05/30/25 12:48 Attending Provider on Discharge: Dipika Davison Primary Care Provider: Dina Ayala Condition: Stable Anticipated Discharge Date/Time: 06/01/25 14:43 Discharge Medications: New cefdinir 300 mg capsule 300 mg PO BID Qty: 4 0RF Discharge Orders: Discharge Order (Routine); Ordered 06/01/25 Ordered By: Dipika Davison Additional Instructions: -you need to complete the antibiotic course for urinary tract infection. Cefdinir tablet twice a day for 2 more days starting 06/02/25 am. -Please take Tylenol and ibuprofen for pain. Return to emergency department for any new or worsening symptoms. -you need to follow-up with your primary care physician within 1-2 weeks. -you need home health for physical therapy/occupational therapy. Activity Level: Activity as Tolerated and No strenuous activity Discharge Diet: Regular Follow Up Appointments: Dina Ayala MD [Primary Care Provider, Family Practice] Forms: [employer] Info Instructions Admit to: SNF Discharge Potential: Fair Length of Stay: <30 days Can use facility standing orders?: Yes Code Status: DNR/DNI TEDs: Bilateral Knee Rehab Potential: Fair Therapy: Physical Therapy and Occupational Therapy Therapy Orders: Evaluate and Treat Oxygen: No Urinary Catheter: No
[2025-06-01] MEDS: ACETAMINOPHEN 325 MG TABLET 975 MG PO (15:11)
--- NOTE | 2025-06-01 15:13 | PC.NURSE ---
End of shift [id number]: Pt awaiting discharge. IV removed. Dressed and in wheelchair. Accompanied by family. [facility] in good condition. Belongings being sent with patient and family.
== END 2025-06-01 15:15 | DRG 536 ==
LOC: ED 19:47 → MEDSURG 20:23
PROVIDERS: Admitting Provider Student in an Organized Health Care Education/Training Program; Emergency Provider Family Medicine; PCP Family Medicine; Visit Provider Family Medicine
DX: S32.591A Other specified fracture of right pubis, initial encounter for closed fracture (principal); S22.31XA Fracture of one rib, right side, initial encounter for closed fracture; N39.0 Urinary tract infection, site not specified; Z16.24 Resistance to multiple antibiotics; S32.391A Other fracture of right ilium, initial encounter for closed fracture; W01.0XXA Fall on same level from slipping, tripping and stumbling without subsequent striking against object, initial encounter; Z91.81 History of falling; Y92.098 Other place in other non-institutional residence as the place of occurrence of the external cause; I48.0 Paroxysmal atrial fibrillation; F03.B0 Unspecified dementia, moderate, without behavioral disturbance, psychotic disturbance, mood disturbance, and anxiety; E78.5 Hyperlipidemia, unspecified; M81.0 Age-related osteoporosis without current pathological fracture; B96.20 Unspecified Escherichia coli [E. coli] as the cause of diseases classified elsewhere
CPT/HCPCS: 36415; 71101; 73080; 73502; 73700; 80048; 80076; 81001; 83605; 84484; 85025; 85027; 87081; 87086; 93005; 97110; 97116; 97162; 97165; 97530; 97535; 99284; 99285; A9270; G0378; J0696

== ENCOUNTER 2025-06-28 15:22 | Outpatient (CLI) | payer MEDICARE, SELFPAY | END 2025-06-28 15:23 | disposition home or self-care (01) | LOC: AMB 06-29 15:04 | PROVIDERS: PCP Family Medicine; Visit Provider Family Medicine | DX: R51.9 Headache, unspecified (principal); R07.89 Other chest pain | CPT/HCPCS: A0425; A0433 ==

== ENCOUNTER 2025-06-28 15:53 | Inpatient (IN) | payer MEDICARE, SELFPAY ==
[2025-06-28] VITALS (27 sets, daily range): BP systolic 95–143; BP diastolic 60–126; PULSE 82–156; RESP 9–30; TEMP 36.2–36.4; O2SAT 89–96
--- OUTSIDE RECORDS SUMMARY | 2025-06-28 15:55 | XMS_ITS | Clinical Summary ---
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 Encounters Date Type Department Care Team Description 06/05/2025 Telephone [facility] [address] [place] [address] Dina Ayala MD Procedure (Medication, and pt and ot orders) 05/29/2025 Orders Only [facility] Scanner 1 scan: (1-Ord) [facility], XR ELBOW RT MIN 3V, 05/29/2025 05/29/2025 Orders Only [facility] Scanner 1 scan: (1-Ord) [facility], RIBS RT MIN 3V , 05/29/2025 05/29/2025 Orders Only [facility] Scanner 1 scan: (1-Ord) [facility], HIP LT W/O CON., 05/29/2025 05/29/2025 Orders Only [facility] Scanner 1 scan: (1-Ord) [place], XR HIP LT MIN 2V, 05/29/2025 from Last 3 Months Immunizations Immunization Administration Dates Next Due COVID-19 VACCINE SPIKEVAX (M ODERNA 50MCG/0.5ML) 12YO+ PFS 08/05/2024 COVID-19 vaccine (ScoutforceBio NTech 30mcg/0.3mL) 12YO+ BIVALENT PF, MDV 07/29/2022 COVID-19 vaccine (Grono.net-Bio NTech 30mcg/0.3mL) 12YO+ MELO-SUCROSE PF, MDV 02/12/2022 Influenza Virus, Unspecified 08/09/2017, 08/11/2016,08/06/2015,2008 Influenza, High-dose Inactivated 07/28/2019,07/26 Influenza, High-dose Quadriv alent Inactivated 08/14/2022,08/19/2021 Influenza, IIV3 (Age >=3 years) 10/01/2012 Influenza, IIV4 07/26/2015 Influenza, Inactivated AIIV4 (Age 65+ Years) Preserv Free 07/07/2020 Influenza, Inactivated IIV3 (Age 65+ Years) Preserv Free 08/05/2024 Pneumococcal Conj 20-valent (Prevnar 20) 01/15/2023 Pneumococcal Poly,23-Valent (Pneumovax) 07/07/2020 Smallpox (Vaccinia) Live [id number] 07/10/1971 Td (Age >=7 Years) 04/09/1997,07/10/1971 Tdap [...] on file Legal Sex 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 Gender Identity Not on file Sexual Orientation [...] 65+ 01/18/2023 01/17/2022, 11/13/2020 COVID-19 vaccine series () 02/03/2025 08/05/2024, 07/29/2022, 02/12/2022, Additional history exists Influenza [...] Procedure Name Priority Date/Time Associated Diagnosis Comments SCAN-RADIOLOGY REPORT 05/29/2025 12:00 AM CDT SCAN-RADIOLOGY REPORT 05/29/2025 12:00 AM CDT SCAN-CT INTERPRETATION 12:00 AM CDT SCAN-RADIOLOGY REPORT 05/29/2025 12:00 AM CDT XR DXA BONE DENSITY 2 SITES AXIAL Routine 11/13/2020 2:58 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 Dina Ayala MD DEXA Final Result from Last 3 Months or Most Recently Relevant to Health Maintenance Insurance #[id number] [facility] [address] [place] [id number] [facility] MR Advance Directives Documents on File Type Date Recorded Patient Reimbursement Representative Expl anation POLST 09/01/2024 Care Teams Stage Settings Painter Relationship Specialty Start Date End Date Dina Ayala MD [address] [place] [address] [place] [address] PCP - General Family Practice 10/02/20
[2025-06-28 16:09] LABS: Glucose, Point-of-Care* 138 mg/dl (60-115)
--- NOTE | 2025-06-28 16:12 | ED_ITS ---
HPI - General Adult General Date Seen: 06/28/25 Chief complaint: Arrhythmia/Palpitations Stated complaint: ill Time Seen by Provider: 06/28/25 16:01 Source: EMS and other Mode of arrival: EMS Limitations: other (Dementia) History of Present Illness HPI narrative: Patient is an 84-year-old patient with dementia coming from Memory Care for tachycardia and headache. Patient began to have a headache yesterday. Today she had her heart rate taking and was shown to be quite elevated. COVID test was negative yesterday. Because of all this patient was sent to the emergency department. Patient does have dementia so has difficulty answering questions but states she is feeling dizzy. Denies any chest pain or shortness of breath. Denies vision changes but does states she has a headache. Is currently not taking any medications. Per staff at her skilled nursing she gets vitals done once a month. Related Data Previous Rx's ?Medication ?Instructions ?Recorded cefdinir 300 mg capsule 300 mg PO BID #4 caps Allergies Allergy/AdvReac Type Severity Reaction Status Date / Time No Known Drug Allergies Allergy Verified 06/28/25 16:09 Review of Systems Status of ROS: Reports: 10 or more systems reviewed and unremarkable except as noted in History and below (But unsure of how accurate this is due to her mental status) [facility] Medical History Moderate dementia without behavioral disturbance, psychotic disturbance, mood disturbance, or anxiety (03/10/25) ?F03.B0 - Unspecified dementia, moderate, without behavioral disturbance, psychotic disturbance, mood disturbance, and anxiety (ICD-10) Mixed urge and stress incontinence (01/27/25) ?N39.46 - Mixed incontinence (ICD-10) Hyperlipidemia (01/27/25) ?E78.5 - Hyperlipidemia, unspecified (ICD-10) Osteoporosis (11/13/20) ?M81.0 - Age-related osteoporosis without current pathological fracture (ICD- 10) Neuropathy of both feet (10/02/20) ?G57.93 - Unspecified mononeuropathy of bilateral lower limbs (ICD-10) 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) ?C19 - Malignant neoplasm of rectosigmoid junction (ICD-10) COVID-19 (~11/19/22) ?U07.1 - COVID-19 (ICD-10) SAH (subarachnoid hemorrhage) (~2010) ?I60.9 - Nontraumatic subarachnoid hemorrhage, unspecified (ICD-10) Malignant neoplasm of rectosigmoid junction ?C19 - Malignant neoplasm of rectosigmoid junction (ICD-10) Osteoporosis ?M81.0 - Age-related osteoporosis without current pathological fracture (ICD- 10) Tubular adenoma of colon ?D12.6 - Benign neoplasm of colon, unspecified (ICD-10) Paroxysmal A-fib ?I48.0 - Paroxysmal atrial fibrillation (ICD-10) Neuropathy of both feet ?G57.93 - Unspecified mononeuropathy of bilateral lower limbs (ICD-10) Nephrolithiasis ?N20.0 - Calculus of kidney (ICD-10) Social History Narrative: Lives in memory care at [facility]. . Denies tob, EtOH, recreational drugs. What is your current living situation?: I presently have a place to live Problems where you live: no known problems Problems where you live details: na In the past 12 months, utilities in danger of being shut off: no In past 12 months, lack of transportation kept you from medical appts, meetings, work, or getting things needed for daily living: no In the past 12 mos, have been you worried that your food would run out before you had money to buy more?: never true In the past 12 mos, the food you bought just didn't last and you didn't have money to buy more?: never true Highest level of school completed/degree received: Master's degree Smoking Status: Never smoker How often do you have a drink containing alcohol: monthly or less AUDIT-C Alcohol total score: 1 Non-prescribed substance use: denies use Caffeine: No How often does anyone, including family, friends and others, physically hurt you : never How often does anyone, including family, friends and others, insult or talk down to you: never How often does anyone, including family, friends and others, threaten you with harm: never How often does anyone, including family, friends and others, scream or curse at you: never service: No Exam Narrative: Exam Narrative: Const: Well-nourished, Well-developed, in no distress Eyes: PERRL, no conjunctival injection, and symmetrical lids HENT: Atraumatic external nose and ears. Moist mucous membranes. Neck: Symmetric, trachea midline, No thyromegaly. CVS: Irregular irregular rhythm, No murmurs or gallops. Peripheral pulses 2+ and equal in all extremities RESP: Unlabored respiratory effort. Clear to auscultation bilaterally. GI: Nontender/Nondistended, No rebound or guarding. MSK:Extremities w/o deformity, Normal Active ROM Skin: Warm, Dry. No rashes or lesions. Neuro: Normal Muscle tone, No focal neurological deficits. Psych: Awake, Alert, & Oriented x3. Appropriate mood and affect. Const: Vital Signs, click to edit/add: Vital Signs - 24 hr 06/28/25 15:59 06/28/25 16:00 06/28/25 16:09 Temperature 97.6 F Pulse Rate 110 H 127 H Pulse Rate [Pulse Oximeter] 156 H Respiratory Rate 25 H 30 H 18 Blood Pressure 141/126 H Blood Pressure [Le ft Upper Arm] 141/126 H Pulse Oximetry 96 89 96 [facility] 06/28/25 16:15 06/28/25 16:30 06/28/25 16:45 Temperature Pulse Rate 119 H 109 H 117 H Pulse Rate [Pulse Oximeter] Respiratory Rate 12 9 L 12 Blood Pressure Blood Pressure [Le ft Upper Arm] Pulse Oximetry 93 93 94 Oxygen Delivery Nh thod 06/28/25 17:00 06/28/25 17:13 06/28/25 17:15 Temperature Pulse Rate 128 H 146 H Pulse Rate [Pulse Oximeter] Respiratory Rate 22 14 Blood Pressure Blood Pressure [Le ft Upper Arm] 126/73 Pulse Oximetry 94 95 Oxygen Delivery Nh thod 06/28/25 17:30 06/28/25 17:45 06/28/25 18:00 Temperature Pulse Rate 82 96 Pulse Rate [Pulse Oximeter] Respiratory Rate 11 L 11 L Blood Pressure Blood Pressure [Le ft Upper Arm] Pulse Oximetry 94 94 Oxygen Delivery Nh thod 06/28/25 18:24 06/28/25 18:57 06/28/25 19:00 Temperature Pulse Rate Pulse Rate [Pulse Oximeter] Respiratory Rate 18 23 Blood Pressure Blood Pressure [Le ft Upper Arm] 100/60 Pulse Oximetry Oxygen Delivery Me thod 06/28/25 19:15 Temperature Pulse Rate 133 H Pulse Rate [Pulse Oximeter] Respiratory Rate 24 Blood Pressure Blood Pressure [Le ft Upper Arm] Pulse Oximetry Oxygen Delivery Me thod Course Vital Signs Vital signs: Initial Vital Signs Pulse Rate 110 H 06/28/25 15:59 Respiratory Rate 25 H 06/28/25 15:59 Blood Pressure 141/126 H 06/28/25 15:59 Blood Pressure Mean 131 H 06/28/25 15:59 Pulse Oximetry 96 06/28/25 15:59 Vital Signs Pulse Rate 110 H 06/28/25 15:59 Respiratory Rate 25 H 06/28/25 15:59 Blood Pressure 141/126 H 06/28/25 15:59 Pulse Oximetry 96 06/28/25 15:59 Temperature 97.6 F 06/28/25 16:09 Pulse Rate 133 H 06/28/25 19:15 Respiratory Rate 24 06/28/25 19:15 Blood Pressure 100/60 06/28/25 18:57 Pulse Oximetry 94 06/28/25 17:45 Oxygen Delivery Method Room Air 06/28/25 16:09 Medications Administered Medications: Generic Name Dose Route Start Last Admin Trade Name Freq PRN Reason Stop Dose Admin Diltiazem HCl 125 mg/ Sodium 125 mls @ 5 mls/hr 06/28/25 18:00 06/28/25 18:49 Chloride IVPB 5 mls/hr .TITRATE ARTI Administration Protocol Discontinued Medications Generic Name Dose Route Start Last Admin Trade Name Freq PRN Reason Stop Dose Admin Lactated Ringer's 1,000 mls @ 1,000 mls/hr 06/28/25 16:12 06/28/25 17:34 Lactated Ringers 1000 Ml IV 06/28/25 17:11 Infused .Q1H ONE Infusion Metoprolol Tartrate 5 mg 06/28/25 17:06 06/28/25 17:10 Metoprolol Tartrate 1 Mg/Ml Inj IVP 06/28/25 17:07 5 mg ONCE ONE Administration Metoprolol Tartrate 5 mg 06/28/25 17:24 06/28/25 17:33 Metoprolol Tartrate 1 Mg/Ml Inj IVP 06/28/25 17:25 5 mg ONCE ONE Administration Medical Decision Making MDM Narrative Medical decision making narrative: Patient is an 84-year-old female presenting to emergency department for headache and AFib with RVR. The headache very well could be related to the AFib and also could be a stone into the. Will do a CT scan of the head for further evaluation of the headache. Seems relatively mild at this time. She is also in AFib with RVR. Does have a history of paroxysmal AFib. I did speak to her on the phone who states previously she has required metoprolol. Is not currently on any medications for AFib. Not on any blood thinners. She only gets vitals done once a month so it is impossible to know how long she has been in AFib. Due to this she is not a candidate for cardioversion. Will check troponin, urinalysis, BMP, CBC, magnesium, EKG. Will also give her metoprolol to see if it helps with her AFib with RVR. EKG shows AFib with RVR at a rate of 104 beats per minute. This was interpreted independently by myself. Lab work shows she has a potassium 4.5 and magnesium of 2.2. Is recommended these are about 4 and 2 respectively for arrhythmias and she is above the/olds. CBC does show a white count 12.54. She does appear to have a urinary tract infection. This could possibly be what history of back in to her paroxysmal AFib. Initial dose of metoprolol did not help with her AFib. She is still in the 160s. Repeated the Toprol and it did not show any improvement. I did speak to her again on the phone who states he is okay with her being started on a Cardizem drip to help with her heart rate. He does state that she does not like to be and medications and had an in ablation done 5 years ago for her AFib. She stopped taking metoprolol and apixaban back and early 2022 as she does not want to be on medications. She was eventually started back on apixaban by the [place] [facility] [place] but again stopped taking it. She does states she is open to taking medications in the short term, she states about 6 weeks, but does not want to chronically be on it. Patient will be admitted to the hospitalist service. Most recent UTI showed sensitivity to Rocephin so was ordered for her UTI. He did have the elevated white count it does not appear septic but did order a lactate and blood cultures. Those are pending at this time. She was accepted to the hospitalist service. Lab Data Labs: Lab Results 06/28/25 06/28/25 06/28/25 Range/Units 16:07 16:12 16:27 WBC 12.54 H (4.50-11.00) K/uL RBC 4.75 (4.00-5.20) m/uL Hgb 14.1 (12.0-16.0) gm/dL Hct 43.1 (33.0-51.0) % MCV 91 (80-100) fL MCH 30 (26-34) pg MCHC 33 (32-36) gm/dL RDW Coeff of Ayleen 13.1 (11.5-15.5) % Plt Count 350 (140-440) K/uL Neut % (Auto) 77.4 H (42.0-72.0) % Lymph % (Auto) 12.4 L (20-44) % [place] % (Auto) 8.9 (0.0-11.0) % Eos % (Auto) 0.4 (0.0-7.0) % Baso % (Auto) 0.5 (0.0-3.0) % Neut # (Auto) 9.70 H (1.7-7.0) K/uL Lymph # (Auto) 1.60 (0.90-2.90) K/uL [place] # (Auto) 1.10 H (0.00-0.90) K/UL Eos # (Auto) 0.10 (0.00-0.50) K/uL Baso # (Auto) 0.10 (0.00-0.30) K/uL Abs Immat Gran (auto) 0.10 (0.00-0.30) K/uL Imm/Tot Granulo (auto) 0.4 % Sodium 137 (135-149) mmol/L Potassium 4.5 (3.6-5.1) mmol/L Chloride 107 (96-114) mmol/L Carbon Dioxide 24 (20-32) mmol/L Anion Gap 6 L (7-15) mEq/L BUN 23 (7-30) mg/dL Creatinine 1.0 (0.5-1.5) mg/dL Estimated GFR 56 ml/min Glucose 129 H (60-115) mg/dL Calcium 9.5 (8.4-10.6) mg/dL Magnesium 2.2 (1.5-2.6) mg/dL Troponin I 0.04 (0.01-0.04) ng/mL Urine Color Yellow (Yellow) Urine Appearance Clear (Clear) Urine pH 5.5 (5.0-8.5) Ur Specific [place] >= 1.030 (1.000-1.030) Urine Protein 2+ A (Negative) Urine Glucose (UA) Negative (Negative) Urine Ketones Trace A (Negative) Urine Blood 1+ A (Negative) Urine Nitrite Positive A (Negative) Urine Bilirubin Negative (Negative) Urine Urobilinogen 0.2 (0.2-1.0) Ur Leukocyte Esterase 3+ A (Negative) Urine RBC 5-10 A (0-2) Urine WBC 25-50 A (0-5) Ur Squamous Epith Cells Few (None-Few) Urine Bacteria Many A (None) POC Glucose 138 H (60-115) mg/dl POC Troponin I 0.01 (0.01-0.04) ng/ml Imaging Data CT scan - head: Attestation: I have reviewed the pertinent imaging results. Radiologist's impression: 1. No CT evidence of acute cortical infarct. No acute intracranial hemorrhage. No other acute intracranial findings. Please note that all CT scans at this facility use dose modulation, iterative reconstruction, and/or weight-based dosing when appropriate to reduce radiation dose to as low as reasonably achievable. Dictated by Nhan Orozco MD @ 06/28/2025 6:41:41 PM ECG Data Attestation: I personally reviewed and interpreted this ECG as follows: Prior ECG tracings: available for review Interpretation: EKG shows AFib with RVR at a rate of 174 beats per minute minute, normal QRS interval, left axis deviation, no obvious ST or T-wave abnormality. The left axis deviation is consistent with her this recent 2 EKGs on 02/20/2023 and 05/29/2025. Discharge Plan Discharge Clinical Impression: Atrial fibrillation with rapid ventricular response UTI (urinary tract infection) Qualifiers: Urinary tract infection type: site unspecified Hematuria presence: without hematuria Qualified Code(s): N39.0 - Urinary tract infection, site not specified Patient Disposition: Admitted As Inpatient Condition: Stable
[2025-06-28 16:17] LABS: Troponin, Point-of-Care* 0.01 ng/ml (0.01-0.04)
[2025-06-28] MEDS: LACTATED RINGERS 1000 ML 1,000 ML IV (16:22)
[2025-06-28 16:36] LABS: Hematocrit 43.1 % (33.0-51.0); Hemoglobin* 14.1 gm/dL (12.0-16.0); Immature Granulocytes Pct Auto 0.4 %; Mean Corpuscular HGB Conc 33 gm/dL (32-36); Mean Corpuscular Hemoglobin 30 pg (26-34); Mean Corpuscular Volume 91 fL (80-100); RDW Coefficient of Variation % 13.1 % (11.5-15.5); Red Blood Count 4.75 m/uL (4.00-5.20); White Blood Count* 12.54 K/uL (4.50-11.00)
[2025-06-28 16:41] LABS: Immature Granulocytes Abs Auto 0.10 K/uL (0.00-0.30); Lymphocytes Absolute Auto 1.60 K/uL (0.90-2.90); Slide Review Reflex No
[2025-06-28 16:42] LABS: Chloride* 107 mmol/L (96-114); Potassium* 4.5 mmol/L (3.6-5.1); Sodium* 137 mmol/L (135-149)
[2025-06-28 16:45] LABS: Anion Gap 6 mEq/L (7-15); Blood Urea Nitrogen* 23 mg/dL (7-30); Calcium* 9.5 mg/dL (8.4-10.6); Carbon Dioxide* 24 mmol/L (20-32); Creatinine* 1.0 mg/dL (0.5-1.5); Estimated Glomerular Filt Rate 56 ml/min; Glucose* 129 mg/dL (60-115)
[2025-06-28] MEDS: METOPROLOL TARTRATE 1 MG/ML inj 5 MG IVP ×2 (17:10→17:33)
--- NOTE | 2025-06-28 17:57 | CRLHL7_ITS ---
For Patients: As a result of the Century Cures Act, medical imaging exams and procedure reports are released immediately into your electronic medical record. You may view this report before your referring provider. If you have questions, please contact your health care provider. INDICATION: Headaches. TECHNIQUE: CT of the head without contrast. Coronal and sagittal reformats are included. COMPARISON: None. FINDINGS: No CT evidence of acute cortical infarct. No loss of billingsley white matter differentiation. No hyperdense vessels to suggest intracranial thrombus. No acute intracranial hemorrhage. No mass effect or midline shift. No hydrocephalus or extra-axial collections. Patchy white matter hypoattenuation, typical for chronic microvascular ischemic change. Intracranial vascular calcifications. Moderate generalized parenchymal volume loss with advanced atrophy of the anterior/medial temporal lobes. No acute osseous abnormalities. Mastoid air cells and paranasal sinuses are clear. Normal soft tissues. IMPRESSION: IMPRESSION:1. No CT evidence of acute cortical infarct. No acute intracranial hemorrhage. No other acute intracranial findings. Please note that all CT scans at this facility use dose modulation, iterative reconstruction, and/or weight-based dosing when appropriate to reduce radiation dose to as low as reasonably achievable. Dictated by Nhan Orozco MD @ 06/28/2025 6:41:41 PM (Electronically Signed)
[2025-06-28 18:23] LABS: Appearance Urine Clear (Clear)
[2025-06-28] MEDS: dilTIAZem HCL 125 MG in 0.9 % SODIUM CHLORIDE 100 ml 100 ML IVPB (18:49)
[2025-06-28] MEDS: cefTRIAXone 1 GM in 0.9 % SODIUM CHLORIDE Mini-bag 100 ML IVPB (19:56)
[2025-06-28 20:01] LABS: Lactate Sepsis w/Reflex* 1.9 mmol/L (0.5-1.9)
--- NOTE | 2025-06-28 20:05 | P.IMHP_ITS ---
Assessment and Plan Assessment and plan (1) Atrial fibrillation with rapid ventricular response: Problem comment: -Continue diltiazem drip -TSH ordered -ECHO ordered -Restart apixaban 5 mg b.i.d. tonight as patient states that she is open to take medications for a short duration. Status: Acute (2) Sepsis: Problem comment: - patient meets sepsis criteria with tachycardia and elevated WBCs above 12. - patient was given IV antibiotics, IV fluids, blood culture and lactate were sent. - abnormal urinalysis, elevated white blood cells at 12.5. Status: Acute (3) UTI (urinary tract infection): Problem comment: - patient meets sepsis criteria with tachycardia and elevated WBCs above 12. - patient was given IV antibiotics, IV fluids, blood culture and lactate were sent. - abnormal urinalysis, elevated white blood cells at 12.5. - Follow-up urine culture/ Bl Cx. Previous urine culture a month ago grew pansensitive E-coli. - patient is demented and we are unable to confirm if she has urinary symptoms, but her elevated white blood cells and her urinalysis support the diagnosis of UTI. will treat with ceftriaxone for now. Status: Acute (4) Headache: Problem comment: Improved CT head was negative for any acute pathology Reviewing her chart, patient has history of nontraumatic subarachnoid hemorrhage back in 2010, but current imaging is not showing any hemorrhage. Ordered Tylenol p.r.n. Status: Acute (5) Moderate dementia without behavioral disturbance, psychotic disturbance, mood disturbance, or anxiety: Problem comment: Lives in the Memory Care Unit Status: Chronic (6) Closed fracture of pubic ramus: Problem comment: 05/2025: Orthopedics were consulted and they stated that if fractures are inoperable. Status: Chronic (7) Closed fracture of iliac crest: Problem comment: 06/19: Orthopedics were consulted and they stated that if fractures are inoperable. Status: Chronic Total Time Spent Total Time Spent: Time spent: Today I spent 75 minutes seeing the patient, discussing the patient with ER staff, reviewing Expanse and EPIC notes/diagnostics, discussing the care plan with our care time that includes social work, PT/OT, pharmacy, RT, penitentiary and documenting my impressions and plan in the medical record. Hospitalist- H&P: HPI History of Present Illness Date Seen: 06/28/25 Chief complaint: ill Narrative: Jenna Kelley is a 84 year old female with past medical history of dementia, HLD, atrial fibrillation, recent fall with pelvic fracture and history of nontraumatic subarachnoid hemorrhage (2010) presents from the memory care unit at [facility] to the ED C/O headache, palpitations and dizziness. Denies chest pain or SOB. Pt is not taking any medications currently as she stopped taking metoprolol and apixaban that were prescribed to her in 2022; patient does not like taking medications. Pt had an ablation of the dysrhythmic focus a few years ago. At the ED patient was hemodynamically stable, with AFib RVR tachycardia up to 170s. Labs were unremarkable except for elevated white blood cells at 12.5 & an abnormal urinalysis. CT head did not show any acute pathology. At the ED patient was given 2 doses of metoprolol tartrate IV 5 mg but did not help and they ended up putting her on diltiazem drip. patient was also started on ceftriaxone to treat UTI. Review of Systems Status of ROS: Reports: unobtainable due to medical condition [facility] Medical History Moderate dementia without behavioral disturbance, psychotic disturbance, mood disturbance, or anxiety (03/10/25) ?F03.B0 - Unspecified dementia, moderate, without behavioral disturbance, psychotic disturbance, mood disturbance, and anxiety (ICD-10) Mixed urge and stress incontinence (01/27/25) ?N39.46 - Mixed incontinence (ICD-10) Hyperlipidemia (01/27/25) ?E78.5 - Hyperlipidemia, unspecified (ICD-10) Osteoporosis (11/13/20) ?M81.0 - Age-related osteoporosis without current pathological fracture (ICD- 10) Neuropathy of both feet (10/02/20) ?G57.93 - Unspecified mononeuropathy of bilateral lower limbs (ICD-10) 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) ?C19 - Malignant neoplasm of rectosigmoid junction (ICD-10) COVID-19 (~11/19/22) ?U07.1 - COVID-19 (ICD-10) SAH (subarachnoid hemorrhage) (~2010) ?I60.9 - Nontraumatic subarachnoid hemorrhage, unspecified (ICD-10) Malignant neoplasm of rectosigmoid junction ?C19 - Malignant neoplasm of rectosigmoid junction (ICD-10) Osteoporosis ?M81.0 - Age-related osteoporosis without current pathological fracture (ICD- 10) Tubular adenoma of colon ?D12.6 - Benign neoplasm of colon, unspecified (ICD-10) Paroxysmal A-fib ?I48.0 - Paroxysmal atrial fibrillation (ICD-10) Neuropathy of both feet ?G57.93 - Unspecified mononeuropathy of bilateral lower limbs (ICD-10) Nephrolithiasis ?N20.0 - Calculus of kidney (ICD-10) Social History Narrative: Lives in memory care at [facility]. . Denies tob, EtOH, recreational drugs. What is your current living situation?: I presently have a place to live Problems where you live: no known problems Problems where you live details: na In the past 12 months, utilities in danger of being shut off: no In past 12 months, lack of transportation kept you from medical appts, meetings, work, or getting things needed for daily living: no In the past 12 mos, have been you worried that your food would run out before you had money to buy more?: never true In the past 12 mos, the food you bought just didn't last and you didn't have money to buy more?: never true Highest level of school completed/degree received: Master's degree Smoking Status: Never smoker How often do you have a drink containing alcohol: monthly or less AUDIT-C Alcohol total score: 1 Non-prescribed substance use: denies use Caffeine: No How often does anyone, including family, friends and others, physically hurt you : never How often does anyone, including family, friends and others, insult or talk down to you: never How often does anyone, including family, friends and others, threaten you with harm: never How often does anyone, including family, friends and others, scream or curse at you: never service: No Meds Home Medications and Allergies Home Medications ?Medication ?Instructions ?Recorded ?Confirmed ?Type cefdinir 300 mg capsule 300 mg PO BID #4 caps Rx Allergies Allergy/AdvReac Type Severity Reaction Status Date / Time No Known Drug Allergies Allergy Verified 06/28/25 16:09 Exam Narrative: Exam Narrative: Physical exam GENERAL: Comfortable, no acute distress. HEAD AND NECK: Atraumatic, normocephalic CARDIOVASCULAR: Tachycardia. No murmurs. RESPIRATORY: Clear to auscultation B/L. Good air entry B/L. No wheezes or rhonchi. GASTROINTESTINAL: Not distended, not tender to palpation. NEUROLOGY: Alert, awake. Normal speech. Const: Vital Signs, click to edit/add: Vital Signs - 24 hr 06/28/25 15:59 06/28/25 16:00 06/28/25 16:09 Temperature 97.6 F Pulse Rate 110 H 127 H Pulse Rate [Pulse Oximeter] 156 H Respiratory Rate 25 H 30 H 18 Blood Pressure 141/126 H Blood Pressure [Le ft Upper Arm] 141/126 H Pulse Oximetry 96 89 [facility] 06/28/25 16:15 06/28/25 16:30 06/28/25 16:45 Temperature Pulse Rate 119 H 109 H 117 H Pulse Rate [Pulse Oximeter] Respiratory Rate 12 9 L 12 Blood Pressure Blood Pressure [Le ft Upper Arm] Pulse Oximetry 93 93 94 [facility] 06/28/25 17:00 06/28/25 17:13 06/28/25 17:15 Temperature Pulse Rate 128 H 146 H Pulse Rate [Pulse Oximeter] Respiratory Rate 22 14 Blood Pressure Blood Pressure [Le ft Upper Arm] 126/73 Pulse Oximetry 94 95 [facility] 06/28/25 17:30 06/28/25 17:45 06/28/25 18:00 Temperature Pulse Rate 82 96 Pulse Rate [Pulse Oximeter] Respiratory Rate 11 L 11 L Blood Pressure Blood Pressure [Le ft Upper Arm] Pulse Oximetry 94 94 [facility] 06/28/25 18:24 06/28/25 18:57 06/28/25 19:00 Temperature Pulse Rate Pulse Rate [Pulse Oximeter] Respiratory Rate 18 23 Blood Pressure Blood Pressure [Le ft Upper Arm] 100/60 Pulse Oximetry [facility] 06/28/25 19:15 06/28/25 19:57 Temperature Pulse Rate 133 H Pulse Rate [Pulse Oximeter] Respiratory Rate 24 Blood Pressure Blood Pressure [Le ft Upper Arm] 104/68 Pulse Oximetry Oxygen Delivery [facility] Hospitalist - H&P: Result Labs Labs: Short CBC 06/28/25 Range/Units 16:27 WBC 12.54 H (4.50-11.00) K/uL Hgb 14.1 (12.0-16.0) gm/dL Hct 43.1 (33.0-51.0) % Plt Count 350 (140-440) K/uL BMP 06/28/25 16:27 Sodium 137 Potassium 4.5 Chloride 107 Carbon Dioxide 24 BUN 23 Creatinine 1.0 Glucose 129 H Calcium 9.5 Cardiac Enzymes 06/28/25 Range/Units 16:27 Troponin I 0.04 (0.01-0.04) ng/mL Urine 06/28/25 Range/Units 16:12 Urine Color Yellow (Yellow) Urine Appearance Clear (Clear) Urine pH 5.5 (5.0-8.5) Ur Specific [place] >= 1.030 (1.000-1.030) Urine Protein 2+ A (Negative) Urine Glucose (UA) Negative (Negative) ECG Attestation: I personally reviewed and interpreted this ECG as follows: ECG interpretation date: 06/28/25 Interpretation: AFib RVR with heart rate in the 170s. Nonspecific T-wave/ST changes Imaging CT scan - head: Radiologist's impression: INDICATION: Headaches. TECHNIQUE: CT of the head without contrast. Coronal and sagittal reformats are included. COMPARISON: None. FINDINGS: No CT evidence of acute cortical infarct. No loss of billingsley white matter differentiation. No hyperdense vessels to suggest intracranial thrombus. No acute intracranial hemorrhage. No mass effect or midline shift. No hydrocephalus or extra-axial collections. Patchy white matter hypoattenuation, typical for chronic microvascular ischemic change. Intracranial vascular calcifications. Moderate generalized parenchymal volume loss with advanced atrophy of the anterior/medial temporal lobes. No acute osseous abnormalities. Mastoid air cells and paranasal sinuses are clear. Normal soft tissues. IMPRESSION: IMPRESSION:1. No CT evidence of acute cortical infarct. No acute intracranial hemorrhage. No other acute intracranial findings. Please note that all CT scans at this facility use dose modulation, iterative reconstruction, and/or weight-based dosing when appropriate to reduce radiation dose to as low as reasonably achievable. Dictated by Nhan Orozco MD @ 06/28/2025 6:41:41 PM
[2025-06-28] MEDS: SODIUM CHLORIDE 0.9 % (FLUSH) 10 ML SYRINGE 5 ML IVF (22:14)
[2025-06-28] MEDS: APIXABAN 5 MG TABLET PO (23:19)
--- NOTE | 2025-06-28 23:50 | PC.NURSE ---
At the begging of my shift 2300 and after my initial assessment, the patient refuses to keep on continuous pulse oximetry and continuous telemetry. I will proceed with spot checks as the patient allows. IV diltiazem is infusing @ 10ml/hr. BP is stable at this time. The patient is also noted to be verbally agitated and calls staff mass manipulators. Maame RAND BSN
[2025-06-29] VITALS (10 sets, daily range): BP systolic 102–126; BP diastolic 59–104; PULSE 65–130; RESP 16–20; TEMP 36.4–37; O2SAT 90–94
[2025-06-29] MEDS: METOPROLOL TARTRATE 25 MG TABLET PO ×2 (03:59→08:35)
--- NOTE | 2025-06-29 05:42 | PC.NURSE ---
[id number]: Upon initial assessment the patient is noted to be quite agitated and calling the staff names. The patient allowed for intermittent VS checks, although did not allow telemetry monitoring until around 0200, around that time the patients HR was noted to be within a reasonable rate, MD overnight was notified and the drip was stopped. PO metoprolol was given. No reports of pain or headache throughout the shift. BP is noted to stay WNL. The patient has attempted to have a BM, and is noted to strain... offered stool softener which the patient for now is agreeable to take. The patient did not sleep throughout the night. Bed alarm is on and call light is within reach. Maame RAND BSN
[2025-06-29 06:13] LABS: Hematocrit 40.8 % (33.0-51.0); Hemoglobin* 13.4 gm/dL (12.0-16.0); Mean Corpuscular HGB Conc 33 gm/dL (32-36); Mean Corpuscular Hemoglobin 30 pg (26-34); Mean Corpuscular Volume 92 fL (80-100); Red Blood Count 4.43 m/uL (4.00-5.20); White Blood Count* 13.06 K/uL (4.50-11.00)
[2025-06-29 06:16] LABS: Slide Review Reflex No
[2025-06-29 06:22] LABS: Chloride* 105 mmol/L (96-114); Sodium* 135 mmol/L (135-149)
[2025-06-29 06:23] LABS: Potassium* 3.9 mmol/L (3.6-5.1)
[2025-06-29 06:25] LABS: Blood Urea Nitrogen* 21 mg/dL (7-30); Creatinine* 0.9 mg/dL (0.5-1.5); Estimated Glomerular Filt Rate 63 ml/min
[2025-06-29 06:26] LABS: Anion Gap 6 mEq/L (7-15); Calcium* 8.9 mg/dL (8.4-10.6); Carbon Dioxide* 24 mmol/L (20-32); Glucose* 104 mg/dL (60-115)
[2025-06-29] MEDS: APIXABAN 5 MG TABLET PO (08:35)
[2025-06-29] MEDS: SODIUM CHLORIDE 0.9 % (FLUSH) 10 ML SYRINGE 5 ML IVF (08:35)
[2025-06-29] MEDS: DOCUSATE SODIUM 100 MG CAPSULE PO (10:31)
--- NOTE | 2025-06-29 11:31 | PC.SOCIAL ---
Discharge planning: Prior to discharge, met with pt, and friend in room regarding d/c plan. lives with resident at [facility] and is pleased with the care she receives there. He has no concerns about discharge back today. He and their friend will provide transportation at discharge today. Called [facility] and left a message for nurse to call back regarding discharge plans. Later, heard from hospital nurse that she has already been in contact with [facility] nurse and has arranged with her for discharge back today. [facility] will be provided with discharge documentation when completed.
--- NOTE | 2025-06-29 13:03 | PC.NURSE ---
Pt baseline dementia with bouts of visual disturbances but easily redirectable. Tolerates regular diet, able to feed self without need for cueing. Up with SBA, gait belt, and walker to bathroom. Pt agreeable to morning cares and medications. IV DC'd, cath tip intact. , Kamran, and family friend arrived where DC instructions were discussed and reviewed. All questions answered. DC to [facility] by family friend @[id number].
--- NOTE | 2025-06-29 14:57 | PM.DS1 ---
DS: Providers Provider Date Seen: 06/29/25 Date of admission: 06/28/25 21:42 Primary care physician: Dina Ayala MD Admitting Clinician: Dipika Davison MD Consults: 06/28/25 21:29 Consult to Occupational Therapy [CONS] Routine Comment: Reason(s) for OT Consult:: Evaluate and Treat Any Restrictions?:: No Restrictions Consult to Physical Therapy [CONS] Routine Comment: Reason(s) for PT Consult:: Evaluate and Treat Any Restrictions?:: No Restrictions Consult to [employer] M[employer] Installer [employer]per [CONS] Routine Comment: Reason for Consult:: Discharge Planning Needs Attending Physician on discharge: Stef Cage MD Date of Discharge: 06/29/25 DS: Diagnosis Discharge Diagnosis (1) Atrial fibrillation with rapid ventricular response: Status: Acute Problem details: -Continue diltiazem drip -TSH ordered -ECHO ordered -Restart apixaban 5 mg b.i.d. tonight as patient states that she is open to take medications for a short duration. (2) UTI (urinary tract infection): Status: Acute Problem details: - patient meets sepsis criteria with tachycardia and elevated WBCs above 12. - patient was given IV antibiotics, IV fluids, blood culture and lactate were sent. - abnormal urinalysis, elevated white blood cells at 12.5. - Follow-up urine culture/ Bl Cx. Previous urine culture a month ago grew pansensitive E-coli. - patient is demented and we are unable to confirm if she has urinary symptoms, but her elevated white blood cells and her urinalysis support the diagnosis of UTI. will treat with ceftriaxone for now. (3) Sepsis: Status: Acute Problem details: - patient meets sepsis criteria with tachycardia and elevated WBCs above 12. - patient was given IV antibiotics, IV fluids, blood culture and lactate were sent. - abnormal urinalysis, elevated white blood cells at 12.5. (4) Moderate dementia without behavioral disturbance, psychotic disturbance, mood disturbance, or anxiety: Status: Chronic Problem details: Lives in the Memory Care Unit - on the morning of 06/29/2025 I spoke directly with patient and her , Kamran, as well as their friend who helps them with transportation, and at this time the patient and her unequivocally indicate that they wish to have DNR DNI resuscitation status, however should patient require hospital level of care in the future that they would want her to receive it (5) Paroxysmal A-fib: Status: Chronic Problem details: h/o ablation per patient, not on anticoagulation (6) Noncompliance w/medication treatment due to intermit use of medication: Status: Acute Problem details: - patient takes pride in herself for not taking medications most of her life - discussed this conflicting ideology with the patient and her . would prefer that the patient take her medications as prescribed, but the patient states she will decide for herself. She indicates she may or may not comply with the discharge medication regimen prescribed on 06/29/2025 DS: Summary Hospital Course Hospital Course: Admission history of present illness: ?84 year old female with past medical history of dementia, HLD, atrial fibrillation, recent fall with pelvic fracture and history of nontraumatic subarachnoid hemorrhage (2010) presents from the memory care unit at [facility] to the ED C/O headache, palpitations and dizziness. Denies chest pain or SOB. Pt is not taking any medications currently as she stopped taking metoprolol and apixaban that were prescribed to her in 2022; patient does not like taking medications. Pt had an ablation of the dysrhythmic focus a few years ago. ?At the ED patient was hemodynamically stable, with AFib RVR tachycardia up to 170s. Labs were unremarkable except for elevated white blood cells at 12.5 & an abnormal urinalysis. CT head did not show any acute pathology. At the ED patient was given 2 doses of metoprolol tartrate IV 5 mg but did not help and they ended up putting her on diltiazem drip. patient was also started on ceftriaxone to treat UTI.? Within a few hours of admission to the hospital the patient converted to a normal sinus rhythm and has remained in a normal sinus rhythm since. We initiated the home going medication regimen specified here in, patient indicates she may or may not comply. Discussed this at great length with her and her . In the course of the same conversation patient and indicated that the patient desires to have a DNR DNI resuscitation status, and should she require inpatient level of care that she would want to receive it. Status at Discharge Overall status at discharge: patient is progressing back to baseline Time Spent with Patient Time attestation: Total time spent providing and/or coordinating discharge services: Time spent: Greater than 30 minutes Exam Narrative: Exam Narrative: GENERAL: Comfortable, no acute distress. HEAD AND NECK: Atraumatic, normocephalic CARDIOVASCULAR: Tachycardia. No murmurs. RESPIRATORY: Clear to auscultation B/L. Good air entry B/L. No wheezes or rhonchi. GASTROINTESTINAL: Not distended, not tender to palpation. NEUROLOGY: Alert, awake. Normal speech. Conversation she has at times has nothing to do with what is being discussed. Const: Vital Signs, click to edit/add: Vital Signs - 24 hr 06/28/25 15:59 06/28/25 16:00 06/28/25 16:09 Temperature 97.6 F Pulse Rate 110 H 127 H Pulse Rate [Left R adial] Pulse Rate [Pulse Oximeter] 156 H Respiratory Rate 25 H 30 H 18 Blood Pressure 141/126 H Blood Pressure [Le ft Arm] Blood Pressure [Le ft Upper Arm] 141/126 H Blood Pressure [Ri ght Arm] Pulse Oximetry 96 89 [facility] 06/28/25 16:15 06/28/25 16:30 06/28/25 16:45 Temperature Pulse Rate 119 H 109 H 117 H Pulse Rate [Left R adial] Pulse Rate [Pulse Oximeter] Respiratory Rate 12 9 L 12 Blood Pressure Blood Pressure [Le ft Arm] Blood Pressure [Le ft Upper Arm] Blood Pressure [Ri ght Arm] Pulse Oximetry 93 93 94 [facility] 06/28/25 17:00 06/28/25 17:13 06/28/25 17:15 Temperature Pulse Rate 128 H 146 H Pulse Rate [Left R adial] Pulse Rate [Pulse Oximeter] Respiratory Rate 22 14 Blood Pressure Blood Pressure [Le ft Arm] Blood Pressure [Le ft Upper Arm] 126/73 Blood Pressure [Ri ght Arm] Pulse Oximetry 94 95 [facility] 06/28/25 17:30 06/28/25 17:45 06/28/25 18:00 Temperature Pulse Rate 82 96 Pulse Rate [Left R adial] Pulse Rate [Pulse Oximeter] Respiratory Rate 11 L 11 L Blood Pressure Blood Pressure [Le ft Arm] Blood Pressure [Le ft Upper Arm] Blood Pressure [Ri ght Arm] Pulse Oximetry 94 94 [facility] 06/28/25 18:24 06/28/25 18:57 06/28/25 19:00 Temperature Pulse Rate Pulse Rate [Left R adial] Pulse Rate [Pulse Oximeter] Respiratory Rate 18 23 Blood Pressure Blood Pressure [Le ft Arm] Blood Pressure [Le ft Upper Arm] 100/60 Blood Pressure [Ri ght Arm] Pulse Oximetry Oxygen Delivery Pr thod 06/28/25 19:15 06/28/25 19:57 06/28/25 20:32 Temperature 97.2 F L Pulse Rate 133 H 136 H Pulse Rate [Left R adial] Pulse Rate [Pulse Oximeter] Respiratory Rate 24 19 Blood Pressure 105/77 Blood Pressure [Le ft Arm] Blood Pressure [Le ft Upper Arm] 104/68 Blood Pressure [Ri ght Arm] Pulse Oximetry 94 Oxygen Delivery Pr thod 06/28/25 21:15 06/28/25 21:30 06/28/25 21:45 Temperature 97.2 F L 97.2 F L Pulse Rate Pulse Rate [Left R adial] 137 H 122 H 119 H Pulse Rate [Pulse Oximeter] Respiratory Rate 19 18 Blood Pressure Blood Pressure [Le ft Arm] Blood Pressure [Le ft Upper Arm] Blood Pressure [Ri ght Arm] 116/113 H 140/106 H 141/101 H Pulse Oximetry 94 94 [facility] Room Air 06/28/25 21:51 06/28/25 21:51 06/28/25 22:00 Temperature 97.2 F L Pulse Rate Pulse Rate [Left R adial] 119 H 146 H Pulse Rate [Pulse Oximeter] Respiratory Rate 18 18 Blood Pressure Blood Pressure [Le ft Arm] Blood Pressure [Le ft Upper Arm] Blood Pressure [Ri ght Arm] 141/101 H 111/87 Pulse Oximetry 94 94 [facility] Room Air 06/28/25 22:17 06/28/25 22:31 06/28/25 22:45 Temperature Pulse Rate Pulse Rate [Left R adial] 136 H 141 H 132 H Pulse Rate [Pulse Oximeter] Respiratory Rate 16 Blood Pressure Blood Pressure [Le ft Arm] Blood Pressure [Le ft Upper Arm] Blood Pressure [Ri ght Arm] 124/97 H 143/77 H 95/77 Pulse Oximetry 91 Oxygen Delivery Pr thod Room Air 06/28/25 23:26 06/29/25 00:32 06/29/25 01:22 Temperature Pulse Rate Pulse Rate [Left R adial] 135 H 130 H 125 H Pulse Rate [Pulse Oximeter] Respiratory Rate 16 18 16 Blood Pressure Blood Pressure [Le ft Arm] Blood Pressure [Le ft Upper Arm] Blood Pressure [Ri ght Arm] 109/88 113/95 H 102/85 Pulse Oximetry 91 92 90 Oxygen Delivery Pr thod Room Air Room Air Room Air 06/29/25 02:20 06/29/25 02:46 06/29/25 03:00 Temperature Pulse Rate 68 Pulse Rate [Left R adial] 65 68 Pulse Rate [Pulse Oximeter] Respiratory Rate 18 16 Blood Pressure Blood Pressure [Le ft Arm] Blood Pressure [Le ft Upper Arm] Blood Pressure [Ri ght Arm] 121/104 H 126/63 Pulse Oximetry 91 91 Oxygen Delivery Pr thod Room Air Room Air 06/29/25 05:20 06/29/25 07:00 06/29/25 08:25 Temperature 97.5 F L Pulse Rate 77 Pulse Rate [Left R adial] 70 85 Pulse Rate [Pulse Oximeter] Respiratory Rate 18 20 Blood Pressure Blood Pressure [Le ft Arm] Blood Pressure [Le ft Upper Arm] Blood Pressure [Ri ght Arm] 120/59 L Pulse Oximetry 93 Oxygen Delivery Pr thod Room Air 06/29/25 08:31 06/29/25 12:57 Temperature 98.6 F 98.6 F Pulse Rate 77 Pulse Rate [Left R adial] 85 Pulse Rate [Pulse Oximeter] Respiratory Rate 20 20 Blood Pressure 105/77 Blood Pressure [Le ft Arm] 124/72 Blood Pressure [Le ft Upper Arm] Blood Pressure [Ri ght Arm] Pulse Oximetry 94 Oxygen Delivery Pr thod Room Air DS: Data Data Completed and Pending Labs on day of discharge: Labs from last 24 hours 06/29/25 06/28/25 06/28/25 05:50 19:47 16:27 WBC 13.06 H 12.54 H RBC 4.43 4.75 Hgb 13.4 14.1 Hct 40.8 43.1 MCV 92 91 MCH 30 30 MCHC 33 33 RDW Coeff of Ayleen 13.1 Plt Count 306 350 Neut % (Auto) 77.4 H Lymph % (Auto) 12.4 L [place] % (Auto) 8.9 Eos % (Auto) 0.4 Baso % (Auto) 0.5 Neut # (Auto) 9.70 H Lymph # (Auto) 1.60 [place] # (Auto) 1.10 H Eos # (Auto) 0.10 Baso # (Auto) 0.10 Abs Immat Gran (auto) 0.10 Imm/Tot Granulo (auto) 0.4 Sodium 135 137 Potassium 3.9 4.5 Chloride 105 107 Carbon Dioxide 24 24 Anion Gap 6 L 6 L BUN 21 23 Creatinine 0.9 1.0 Estimated GFR 63 56 Glucose 104 129 H Lactate 1.9 Calcium 8.9 9.5 Magnesium 2.2 Troponin I 0.04 TSH 4.620 H Urine Color Urine Appearance Urine pH Ur Specific [place] Urine Protein Urine Glucose (UA) Urine Ketones Urine Blood Urine Nitrite Urine Bilirubin Urine Urobilinogen Ur Leukocyte Esterase Urine RBC Urine WBC Ur Squamous Epith Cells Urine Bacteria POC Glucose POC Troponin I 06/28/25 06/28/25 16:12 16:07 WBC RBC Hgb Hct MCV MCH MCHC RDW Coeff of [place]en Plt Count Neut % (Auto) Lymph % (Auto) [place] % (Auto) Eos % (Auto) Baso % (Auto) Neut # (Auto) Lymph # (Auto) [place] # (Auto) Eos # (Auto) Baso # (Auto) Abs Immat Gran (auto) Imm/Tot Granulo (auto) Sodium Potassium Chloride Carbon Dioxide Anion Gap BUN Creatinine Estimated GFR Glucose Lactate Calcium Magnesium Troponin I TSH Urine Color Yellow Urine Appearance Clear Urine pH 5.5 Ur Specific [place] >= 1.030 Urine Protein 2+ A Urine Glucose (UA) Negative Urine Ketones Trace A Urine Blood 1+ A Urine Nitrite Positive A Urine Bilirubin Negative Urine Urobilinogen 0.2 Ur Leukocyte Esterase 3+ A Urine RBC 5-10 A Urine WBC 25-50 A Ur Squamous Epith Cells Few Urine Bacteria Many A POC Glucose 138 H POC Troponin I 0.01 Pending Preliminary micro results at discharge 06/28/25 16:12 Urine Culture - Preliminary Urine,Clean Catch Gram negative robin Imaging CT scan - head: Radiologist's impression: FINDINGS: No CT evidence of acute cortical infarct. No loss of billingsley white matter differentiation. No hyperdense vessels to suggest intracranial thrombus. No acute intracranial hemorrhage. No mass effect or midline shift. No hydrocephalus or extra-axial collections. Patchy white matter hypoattenuation, typical for chronic microvascular ischemic change. Intracranial vascular calcifications. Moderate generalized parenchymal volume loss with advanced atrophy of the anterior/medial temporal lobes. No acute osseous abnormalities. Mastoid air cells and paranasal sinuses are clear. Normal soft tissues. IMPRESSION: IMPRESSION:1. No CT evidence of acute cortical infarct. No acute intracranial hemorrhage. No other acute intracranial findings. Discharge Plan Discharge Disposition: [facility] Date of Admission: 06/28/25 21:42 Attending Provider on Discharge: Stef Cage Primary Care Provider: Dina Ayala Condition: Improved Anticipated Discharge Date/Time: 06/29/25 11:00 Discharge Medications: New docusate sodium 100 mg Capsule 100 mg PO BID PRN (Reason: Constipation) 30 Days Qty: 60 1RF metoprolol tartrate 25 mg Tablet 25 mg PO BID 30 Days Qty: 60 1RF Eliquis 5 mg Tablet 5 mg PO BID 30 Days Qty: 60 1RF acetaminophen 325 mg tablet 650 mg PO QID PRNQty: 100 0RF cefdinir 300 mg capsule 300 mg PO BID Qty: 10 0RF Discharge Orders: Discharge Order (Routine); Ordered 06/29/25 Ordered By: Stef Cage Activity Level: No Restrictions and Activity as Tolerated Discharge Diet: Regular Follow Up Appointments: Dina Ayala MD [Primary Care Provider, Family Practice] Forms: [facility] Belong[facility], [facility] Inst[facility] Discharge Comments: Conversation with patient, , Kamran, and family friend prior to discharge confirms desire for DNR DNI resuscitation status. They are desirous of additional hospital care if warranted in the future. Admit to: Assisted Living Discharge Potential: Poor Length of Stay: >90 days Can use facility standing orders?: Yes Code Status: DNR/DNI Oxygen: No Urinary Catheter: No Orders are good >30 days: Yes Signature: Stef Cage
[2025-07-14 10:42] LABS: Troponin, Point-of-Care* 0.01 ng/ml (0.01-0.04)
== END 2025-06-29 11:15 | DRG 308 ==
LOC: ED 19:58 → MEDSURG 21:10
PROVIDERS: Admitting Provider Student in an Organized Health Care Education/Training Program; Emergency Provider Student in an Organized Health Care Education/Training Program; PCP Family Medicine; Visit Provider Student in an Organized Health Care Education/Training Program
DX: I48.0 Paroxysmal atrial fibrillation (principal); A41.9 Sepsis, unspecified organism; N39.0 Urinary tract infection, site not specified; F03.B0 Unspecified dementia, moderate, without behavioral disturbance, psychotic disturbance, mood disturbance, and anxiety; Z91.128 Patient's intentional underdosing of medication regimen for other reason; E78.5 Hyperlipidemia, unspecified; N39.46 Mixed incontinence; Z85.048 Personal history of other malignant neoplasm of rectum, rectosigmoid junction, and anus; R51.9 Headache, unspecified; S32.591D Other specified fracture of right pubis, subsequent encounter for fracture with routine healing; S32.301D Unspecified fracture of right ilium, subsequent encounter for fracture with routine healing
CPT/HCPCS: 36415; 70450; 80048; 81001; 82947; 83605; 83735; 84443; 84484; 85025; 85027; 87040; 87086; 93005; 97161; 97165; 99285; A9270; J0696; J1200; J3490; J7120

== ENCOUNTER 2025-09-19 09:51 | Outpatient (REF) | payer MEDICARE, SELFPAY ==
[2025-09-19 10:08] LABS: Hematocrit* 44.6 % (33.0-51.0); Hemoglobin* 14.7 gm/dL (12.0-16.0); Immature Granulocytes Abs Auto 0.02 K/uL (0.00-0.30); Immature Granulocytes Pct Auto 0.3 %; Lymphocytes Absolute Auto 2.18 K/uL (0.90-2.90); Mean Corpuscular HGB Conc 33 gm/dL (32-36); Mean Corpuscular Hemoglobin 29 pg (26-34); Mean Corpuscular Volume 88 fL (80-100); RDW Coefficient of Variation % 13.5 % (11.5-15.5); Red Blood Count* 5.07 m/uL (4.00-5.20); White Blood Count* 7.44 K/uL (4.50-11.00)
[2025-09-19 10:10] LABS: Chloride* 100 mmol/L (96-114); Sodium* 135 mmol/L (135-149)
[2025-09-19 10:11] LABS: Potassium* 4.1 mmol/L (3.6-5.1)
[2025-09-19 10:14] LABS: Anion Gap 9 mEq/L (7-15); Blood Urea Nitrogen* 18 mg/dL (7-30); Calcium* 9.3 mg/dL (8.4-10.6); Carbon Dioxide* 26 mmol/L (20-32); Creatinine* 0.8 mg/dL (0.5-1.5); Estimated Glomerular Filt Rate 73 ml/min; Glucose* 96 mg/dL (60-115)
[2025-09-19 10:19] LABS: Slide Review Reflex No
--- OUTSIDE RECORDS SUMMARY | 2025-09-20 00:13 | XMS_ITS | Clinical Summary ---
Author Organization [facility] Address [address] [place] [id number] Care Team Providers Care Tub Rider Name Role Phone Dina Ayala MD Primary Care Provide r Allergies No known active allergies Medications metoprolol tartrate (LOPRESSOR) 25 mg tabletIndications:R apid atrial fibrillation (HC) Take 1 Tablet (25 mg) by mouth two times daily. 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 180 Tablet 3 5 Active polyethylene glycoL (MIRALAX) 17 gram/scoop powderIndications:C hronic constipation Mix 0.5 scoops (8.5 g) in liquid then take by mouth once daily. 5 Active calcium carbonate-vitamin D3, 500 mg-400 units, (OSCAL 500 + D) tablet Take 2 Tablets by mouth once daily. 0 2 025 Discontin ued(*Med complete/ Regimen complete/ Level of care change) apixaban (Eliquis) 5 mg tabletIndications:R apid atrial fibrillation (HC) Take 1 Tablet (5 mg) by mouth two times daily. 180 Tablet 3 3 025 Discontin ued(Reord er (E-cancel not sent)) metoprolol tartrate (LOPRESSOR) 25 mg tabletIndications:R apid atrial fibrillation (HC) Take 1 Tablet (25 mg) by mouth two times daily. TAKE 1 BY MOUTH TWICE DAILY Strength: 25 mg 180 Tablet 3 3 025 Discontin ued(*Med complete/ Regimen complete/ Level of care change) metoprolol succinate (TOPROL XL) 50 mg sustained-release tabletIndications:R apid atrial fibrillation (HC) Take 1 Tablet (50 mg) by mouth once daily. 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 She claims she does the muscle test. She pinched her fingers together and said No); Immunization/Injectio n (COVID-19 ) 09/08/2025 Travel 06/28/2025 Orders Only [facility] Scanner 1 scan: (1-Ord) [place], CT HEAD/BRAIN WO CON, 06/28/2025 from Last 3 Months Immunizations Immunization Administration Dates Next Due COVID-19 VACCINE SPIKEVAX (M ODERNA 50MCG/0.5ML) 12YO+ PFS 09/08/2025,08/05/2024,08/11/2023 COVID-19 vaccine ([employer] NTech 30mcg/0.3mL) 12YO+ BIVALENT PF, MDV 07/29/2022 COVID-19 vaccine (115 network disks NTech 30mcg/0.3mL) 12YO+ MELO-SUCROSE PF, MDV 02/12/2022 Influenza Virus, Unspecified 08/09/2017, 08/11/2016,08/06/2015,08/27 Influenza, High-dose Inactivated 07/28/2019,07/26 Influenza, High-dose Quadriv alent Inactivated 08/14/2022,08/19/2021 Influenza, IIV3 (Age >=3 years) 10/01/2012 Influenza, IIV4 07/26/2015 Influenza, Inactivated AIIV4 (Age 65+ Years) Preserv Free 08/07/2023,07/07/2020 Influenza, Inactivated IIV3 (Age 65+ Years) Preserv Free 09/08/2025,08/05/2024 Pneumococcal Conj 20-valent (Prevnar 20) 01/15/2023 Pneumococcal Poly,23-Valent (Pneumovax) 07/07/2020 RSV, Bivalent Vaccine Recons tituted (Abrysvo 120MCG/0.5mL) 11/02/2023 Smallpox (Vaccinia) Live [id number] 07/10/1971 Td (Age >=7 Years) 04/09/1997,07/10/1971 Tdap [...] Answer Date Recorded PHQ-2 TOTAL SCORE 0 09/08/2025 Social Connections Answer Date Recorded Do you often feel lonely or isolated from those around you? 0 09/08/2025 Alcohol Use Answer Date Recorded How often do you have a drink containing alcohol ? 0 09/08/2025 How many drinks containing a lcohol do you have on a typical day when you are drinking? 0 09/08/2025 How often do you have five or more drinks on one occasion? 0 09/08/2025 Financial Resource Strain Answer Date R ecorded Difficulty of Paying Living Expenses 3 09/08/2025 Difficulty of Paying Living Expenses Not on file 09/08/2025 Food Insecurity Answer Date Recorded Do you worry your food will run out before you are able to buy more? 1 09/08/2025 Transportation Needs Answer Date Record ed Does lack of transportation keep you from medica l appointments? 1 09/08/2025 Does lack of transportation keep you from work, meetings or getting things that you need? 1 09/08/2025 Housing Stability Answer Date Recorded What is your housing situation today? 1 09/08/2025 Utilities Answer Date Recorded Do you have trouble paying f or utilities (for example, heat, electricity, water, phone)? 1 09/08/2025 Comments No Sex and Gender Information Value Date Recorded Sex Assigned at Not on file Legal Sex Female 2:53 PM ASSISTANT GOLF COACH Gender Identity Not on file Sexual Orientation Not on file Obstetrics History Last Filed Vital Signs Vital Sign Reading Time Taken Comments Blood Pressure 112/73 09/08/2025 9:42 AM ASSISTANT GOLF COACH Pulse 85 09/08/2025 9:42 AM ASSISTANT GOLF COACH Temperature - - Respiratory Rate 16 02/06/2022 1:22 PM CDT Oxygen Saturation 98% 09/08/2025 9:42 AM ASSISTANT GOLF COACH Inhaled Oxygen Concentration - - Weight 70.3 kg (155 lb) 09/08/2025 9:42 AM ASSISTANT GOLF COACH Height 171.5 cm (5' 7.5) 09/08/2025 9:42 AM ASSISTANT GOLF COACH Body Mass Index 23.92 09/08/2025 9:42 AM ASSISTANT GOLF COACH Plan of Treatment Health Maintenance Due Date Last Done Comments Zoster (shingles) series for age 50+ (1 of 2) 1991 BMI (ht and wt on same day) for age 18+ 09/08/2026 09/08/2025, 01/17/2022 Depression screening for age 12+ 09/08/2026 09/08/2025, 01/17/2022, 11/13/2020, Additional history exists Medicare Wellness for age 65+ 09/09/2026 09/08/2025, 01/17/2022, 11/13/2020 Tetanus booster 06/21/2030 06/21/2020, 03/26, 07/10/1971 DEXA/DXA scan for age 65+ Completed 11/13/2020 Pneumococcal series for age 50+ Completed 01/15/2023, 07/07/2020 RSV vaccine for adults or Completed 11/02/2023 Influenza Vaccine Completed 09/08/2025, , 08/07/2023, Additional history exists Hepatitis B series for 19+ Aged Out N o longer eligible based on patient's age to complete this topic Procedures Procedure Name Priority Date/Time Associated Diagnosis Comments CBC WITH AUTO DIFFERENTIAL Routine 09/08/2025 10:54 AM ASSISTANT GOLF COACH Rapid atrial fibrillation (HC) BASIC METABOLIC PANEL Routine 09/08/2025 10:54 AM ASSISTANT GOLF COACH Rapid atrial fibrillation (HC) TSH WITH REFLEX Routine 09/08/2025 10:54 AM ASSISTANT GOLF COACH Rapid atrial fibrillation (HC) CBC WITH AUTO DIFFERENTIAL Routine 09/08/2025 10:54 AM ASSISTANT GOLF COACH Rapid atrial fibrillation (HC) SCAN-CT INTERPRETATION 12:00 AM CDT XR DXA BONE DENSITY 2 SITES AXIAL Routine 11/13/2020 2:58 PM ASSISTANT GOLF COACH Osteoporosis, unspecified osteoporosis type, unspecified pathological fracture presence from Last 3 Months or Most Recently Relevant to Health Maintenance Results * (ABNORMAL) CBC WITH AUTO DIFFERENTIAL (09/08/2025 10:54 AM ASSISTANT GOLF COACH) WHITE BLOOD CELL COUNT 9.7 3.8 - 10.8 Thousand/ uL 09/09/2025 4:31 AM ASSISTANT GOLF COACH [facility] RED BLOOD CELL COUNT 5.41(H) 3.80 - 5.10 Million/u L 09/09/2025 4:31 AM ASSISTANT GOLF COACH [facility] HEMOGLOBIN 16.2(H) 11.7 - 15.5 g/dL 09/09/2025 4:31 AM ASSISTANT GOLF COACH [facility] HEMATOCRIT 48.9(H) 35.0 - 45.0 % 09/09/2025 4:31 AM ASSISTANT GOLF COACH [facility] MCV 90.4 80.0 - 100.0 fL 09/09/2025 4:31 AM ASSISTANT GOLF COACH [facility] MCH 29.9 27.0 - 33.0 pg 09/09/2025 4:31 AM ASSISTANT GOLF COACH [facility] MCHC 33.1 32.0 - 36.0 g/dL 09/09/2025 4:31 AM ASSISTANT GOLF COACH [facility] Comment: For adults, a slight decrease in the calculated MCHC value (in the range of 30 to 32 g/dL) is most likely not clinically significant; however, it should be interpreted with caution in correlation with other red cell parameters and the patient's clinical condition. RDW 13.1 11.0 - 15.0 % 09/09/2025 4:31 AM ASSISTANT GOLF COACH [facility] PLATELET COUNT 399 140 - 400 Thousand/ uL 09/09/2025 4:31 AM ASSISTANT GOLF COACH [facility] MPV 11.0 7.5 - 12.5 fL 09/09/2025 4:31 AM ASSISTANT GOLF COACH [facility] NEUTROPHILS 67.1 % 09/09/2025 4:31 AM ASSISTANT GOLF COACH [facility] LYMPHOCYTES 22.3 % 09/09/2025 4:31 AM ASSISTANT GOLF COACH [facility] MONOCYTES 7.9 % 09/09/2025 4:31 AM ASSISTANT GOLF COACH [facility] EOSINOPHILS 1.9 % 09/09/2025 4:31 AM ASSISTANT GOLF COACH [facility] BASOPHILS 0.8 % 09/09/2025 4:31 AM ASSISTANT GOLF COACH [facility] ABSOLUTE NEUTROPHILS 6509 1500 - 7800 cells/uL 09/09/2025 4:31 AM ASSISTANT GOLF COACH [facility] ABSOLUTE LYMPHOCYTES 2163 850 - 3900 cells/uL 09/09/2025 4:31 AM ASSISTANT GOLF COACH [facility] ABSOLUTE MONOCYTES 766 200 - 950 cells/uL 09/09/2025 4:31 AM ASSISTANT GOLF COACH [facility] ABSOLUTE EOSINOPHILS 184 15 - 500 cells/uL 09/09/2025 4:31 AM ASSISTANT GOLF COACH [facility] ABSOLUTE BASOPHILS 78 0 - 200 cells/uL 09/09/2025 4:31 AM ASSISTANT GOLF COACH [facility] Blood BLOOD SPECIMEN / Unknown [facility] / Unknown 09/08/2025 10:54 AM ASSISTANT GOLF COACH 09/08/2025 10:54 AM ASSISTANT GOLF COACH Dina Ayala MD HEMATOLOGY Final Result [facility] [address] [place] [address], * TSH WITH REFLEX (09/08/2025 10:54 AM ASSISTANT GOLF COACH) TSH W/REFLEX TO FT4 3.47 0.40 - 4.50 mIU/L 09/09/2025 5:49 AM ASSISTANT GOLF COACH [facility] Blood BLOOD SPECIMEN / Unknown [facility] / Unknown 09/08/2025 10:54 AM ASSISTANT GOLF COACH 09/08/2025 10:54 AM ASSISTANT GOLF COACH Dnia Ayala MD CHEMISTRY Final Result Performing Organization Address City/[facility]/ZIP Co de Phone Number [facility] [address] [place] [id number], [place] [phone] * BASIC METABOLIC PANEL (09/08/2025 10:54 AM ASSISTANT GOLF COACH) SODIUM 136 135 - 146 mmol/L 09/09/2025 4:55 AM ASSISTANT GOLF COACH [facility] POTASSIUM 4.7 3.5 - 5.3 mmol/L 09/09/2025 4:55 AM ASSISTANT GOLF COACH [facility] CARBON DIOXIDE 25 20 - 32 mmol/L 09/09/2025 4:55 AM ASSISTANT GOLF COACH [facility] GLUCOSE 87 65 - 99 mg/dL 09/09/2025 4:55 AM ASSISTANT GOLF COACH [facility] Comment: Fasting reference interval CALCIUM 10.1 8.6 - 10.4 mg/dL 09/09/2025 4:55 AM ASSISTANT GOLF COACH [facility] CREATININE 0.90 0.60 - 0.95 mg/dL 09/09/2025 4:55 AM ASSISTANT GOLF COACH [facility] BUN/CREATININE RATIO SEE NOTE: 6 - 22 (calc) 09/09/2025 4:55 AM ASSISTANT GOLF COACH [facility] Comment: Not Reported: BUN and Creatinine are within reference range. EGFR 63 > OR = 60 mL/min/1. 73m2 09/09/2025 4:55 AM ASSISTANT GOLF COACH [facility] UREA NITROGEN (BUN) 23 7 - 25 mg/dL 09/09/2025 4:55 AM ASSISTANT GOLF COACH [facility] ELECTROLYTE BALANCE 9 7 - 17 mmol/L (calc) 09/09/2025 4:55 AM ASSISTANT GOLF COACH [facility] CHLORIDE 102 98 - 110 mmol/L 09/09/2025 4:55 AM ASSISTANT GOLF COACH [facility] Blood BLOOD SPECIMEN / Unknown [facility] / Unknown 09/08/2025 10:54 AM ASSISTANT GOLF COACH 09/08/2025 10:54 AM ASSISTANT GOLF COACH Dina Ayala MD CHEMISTRY Final Result Performing Organization Address City/[facility]/ZIP Co de Phone Number [facility] [address] [address], [place] [phone] * SCAN-CT INTERPRETATION (06/28/2025 12:00 AM CDT) Anatomical Region Laterality Modality Other us Scanner OTHER Final Result * (ABNORMAL) XR DXA BONE DENSITY 2 SITES AXIAL (11/13/2020 2:58 PM ASSISTANT GOLF COACH) Anatomical Region Laterality Modality Spine, HIPS, HIPL, HIPR Other Narrative 11/14/2020 2:44 PM ASSISTANT GOLF COACH Please see scanned document for results of this study. Dina Ayala MD DEXA Final Result from Last 3 Months or Most Recently Relevant to Health Maintenance Insurance MEDICARE [place] ONLY * Guarantor: Kamran Kelley Account Type Relation to Patient Date of Phone Billing Address Personal/Family Spouse 1938 [address] [place] [address] Advance Directives Documents on File Type Date Recorded Patient Local Bulk Driver Expl anation POLST 09/01/2024 Care Teams Tub Rider Relationship Specialty Start Date End Date Dina Ayala MD [address] [place] [address] PCP - General Family Practice 10/02/20
== END 2025-09-19 09:52 | disposition home or self-care (01) ==
LOC: NPINS 09:51
PROVIDERS: PCP Family Medicine; Visit Provider Nurse Practitioner Adult Health
DX: D64.9 Anemia, unspecified (principal); I10 Essential (primary) hypertension; E03.9 Hypothyroidism, unspecified
CPT/HCPCS: 80048; 84443; 85025